=== PATIENT | male | born 1975 | race Caucasian/White ===

== ENCOUNTER → 2022-05-11 11:24 | Outpatient (CLI) | payer OTHER, MEDICAID, SELFPAY ==
[2022-05-11 12:43] LABS: COVID19 -Nasal RAPID Negative (Negative)
== END ==
PROVIDERS: PCP Physician Assistant; Visit Provider Surgery
DX: Z20.822 Contact with and (suspected) exposure to COVID-19 (principal); Z01.812 Encounter for preprocedural laboratory examination
CPT/HCPCS: 87635; C9803

== ENCOUNTER 2022-05-12 08:48 | Day surgery (SDC) | payer OTHER, MEDICAID, SELFPAY ==
[2022-05-12 09:10] VITALS: BP 143/92; PULSE 84; RESP 16; TEMP 36.1; O2SAT 96; BMI 33.9
[2022-05-12] MEDS: LACTATED RINGERS 1,000 ML 200 ML IV (09:49)
--- NOTE | 2022-05-12 10:01 | PM.HP.1 ---
History of Present Illness History of Present Illness Date Patient Seen: 05/12/22 Time Patient Seen: 10:01 Chief complaint: SDC Narrative: The patient presents for colorectal screening. They have never had any previous examination for such. No personal or family history of colon cancer. On further history denies any recent gastrointestinal symptoms. No nausea, vomiting, abdominal pain, loss of appetite, unexplained weight loss, change in bowel habits, diarrhea, constipation, melena, hematochezia, or bright red blood per rectum. Patient History Medical History Fistula Hypercholesteremia Injury of left lower arm Family & Social History Social History: household members spouse Tobacco & Substance use: Smoking Status Former smoker alcohol intake never Substance Use Type does not use Meds Home Medications and Allergies Home Medications Medication Instructions Recorded Confirmed Type atorvastatin 40 mg tablet 40 mg PO DAILY 05/12/22 05/12/22 History Allergies Allergy/AdvReac Type Severity Reaction Status Date / Time Penicillins [PENICILLINS] Allergy Unknown Verified 05/12/22 09:49 Exam Vital Signs (past 8 hours): - 05/12/22 09:10 Temperature 97.0 F L Pulse Rate 84 Respiratory Rate 16 Blood Pressure 143/92 H Pulse Oximetry 96 Oxygen Delivery Method Room Air Oxygen Delivery Method Room Air Narrative Exam Narrative: General adult male alert oriented no acute distress Chest nonlabored respiration Extremities warm well perfused Assessment & Plan Assessment & Plan narrative: The patient requires colorectal screening and colonoscopy is recommended. Technical details were discussed. Risks, benefits, alternatives explained. Risks including but not limited to myocardial infarction, aspiration, bleeding, pain, missed lesion, incomplete examination, need for further radiographic studies, colonic perforation, and need for major abdominal surgery were discussed. All questions were answered to their satisfaction, and they are in agreement with this plan. Time Spent With Patient Critical Care time: I spent a total of [] minutes of critical care time on this patient's care today; this time is exclusive of procedural time.
[2022-05-12] MEDS: MIDAZOLAM 5 MG/5 ML VIAL 6 MG IV (10:14)
[2022-05-12] MEDS: fentaNYL 250 MCG/5 ML INJ 150 MCG IV (10:16)
--- NOTE | 2022-05-12 10:30 | PM.OP.COLON ---
Operative Date/Time/Diagnoses Date of procedure: 05/12/22 Time of procedure: 10:31 Pre-op diagnosis: Screening colonoscopy Post-op diagnosis: same Procedure & Clinicians Study performed: Colonoscopy Same procedure as scheduled: Yes Indications: screening colonoscopy Surgeon: Adiel Gomez Procedure Notes Procedure in detail: Medications: Conscious sedation using 6mg IV midazolam and 150mcg IV of fentanyl The history and physical was performed/updated and the patient is ASA class is *. The procedure was discussed in detail with the patient. Potential risks complications including infection, bleeding, missed diagnosis, perforation, need for surgery, and were explained. Their questions were answered and informed consent was obtained. Patient was brought to the procedure room and placed standard monitoring equipment. The patient's vital signs were monitored continuously throughout the entire procedure. Prior to starting time-out was performed. The patient was placed in the left lateral recumbent position. Procedural sedation was administered. Examination began with a thorough inspection of the perianal area there was no evidence of fissures, fistulae, external hemorrhoids or cutaneous malignancy. The colonoscopy scope was then placed into the anal canal and was advanced to the cecum, which was identified by the ileocecal valve, the appendiceal orifice and the confluence of the taenia. The scope was then slowly withdrawn examining colon thoroughly in all directions, irrigating it of any residual stool. FINDINGS 1. No masses or polyps 2. Sigmoid-moderate diverticulosis The patient tolerated the procedure well. They will be discharged once criteria are met. The prep was of good/excellent quality. The withdrawl time was 10 minutes. The sedation time was 18minutes. Specimen(s): none sent Complications: none Impression: Normal colonoscopy Post-procedure Recommendations: Colonoscopy in 10 years and High fiber diet Disposition: same day surgery
[2022-05-12 10:34] VITALS: BP 134/82; PULSE 88; RESP 19; TEMP 37; O2SAT 95
[2022-05-12 10:39] VITALS: BP 119/69; PULSE 86; RESP 16; O2SAT 96
[2022-05-12 10:44] VITALS: BP 121/77; PULSE 88; RESP 15; O2SAT 99
[2022-05-12 10:48] VITALS: BP 132/86; PULSE 96; RESP 16; O2SAT 95
[2022-05-12 10:50] VITALS: BP 118/88; PULSE 85; RESP 15; O2SAT 96
== END 2022-05-12 11:05 | disposition home or self-care (01) ==
PROVIDERS: PCP Physician Assistant; Referring Provider Surgery; Visit Provider Surgery
PROC: 0DJD8ZZ Inspection of Lower Intestinal Tract, Via Natural or Artificial Opening Endoscopic (ICD-10-PCS; CPT 45378; principal; 2022-05-12 10:00)
DX: Z12.11 Encounter for screening for malignant neoplasm of colon (principal); K57.30 Diverticulosis of large intestine without perforation or abscess without bleeding
CPT/HCPCS: 45378; 99152; J2250; J3010

== ENCOUNTER 2022-09-22 04:19 | Emergency (ER) | payer OTHER, MEDICAID, SELFPAY ==
[2022-09-22 04:22] VITALS: BP 127/91; PULSE 118; RESP 18; TEMP 36.7; O2SAT 98; BMI 33.9
--- NOTE | 2022-09-22 04:55 | DI.CT.S_ITS ---
PROCEDURE: CT ABDOMEN PELVIS W CON INDICATIONS: IV contrast only/left lower quadrant pain TECHNIQUE: After the administration of oral and IV contrast, axial sections were acquired from the lung bases to the pubic symphysis. Coronal and sagittal reformats were performed. For radiation dose reduction, the following was used: automated exposure control, adjustment of mA and/or kV according to patient size. COMPARISON: [facility], CT, ABDOMEN/PELVIS WITH CONTRAST, 08/17/2017, 13:59. FINDINGS: Image quality: Excellent. Lung bases: Patchy opacity at the lingula. This could represent infectious/inflammatory etiology. Bibasilar atelectasis. No pleural effusion. Heart: No significant findings. ABDOMEN: Liver: No focal lesion. Probable hepatic steatosis. Gallbladder: Not significantly distended. Several moderate-sized gallstones. No pericholecystic fluid. Biliary ducts: No dilatation. Pancreas: No peripancreatic fluid collection. Spleen: No splenomegaly. Adrenal Glands: No nodule. Kidneys and Ureters: No hydronephrosis. Nonobstructing right kidney stone measuring 0.6 cm. Stomach and Bowel: Diverticulosis. Moderate inflammatory change at the left lower quadrant surrounding the inferior descending colon, (2/). No extraluminal gas. No abscess. There is colonic wall thickening. Normal appendix. No small bowel obstruction. Peritoneum: No abnormal intraperitoneal fluid. No free air. Ventral Wall: No hernia. Abdominal Nodes: No retroperitoneal or mesenteric adenopathy by size criteria. Vessels: Aorta and inferior vena cava are normal in size. PELVIS: Pelvic Organs: Trace free fluid in the pelvis. Bladder: No stones. Pelvic Nodes: No enlarged lymph nodes. Miscellaneous: Small bilateral inguinal hernias are seen. Bones: No suspicious lesion. IMPRESSION: 1. Acute diverticulosis at the left lower quadrant. No abscess. -Recommend follow-up colonoscopy. 2. Cholelithiasis. Nonobstructing right kidney stone. This report is concordant with the overnight preliminary interpretation. Dictated by: Angel Colorado M.D. on 09/22/2022 at 8:18 Approved by: Angel Colorado M.D. on 09/22/2022 at 8:31
--- NOTE | 2022-09-22 04:57 | ED_ITS ---
HPI - Abdominal Pain General Chief Complaint: Abdominal Pain Stated Complaint: lower left abd pain Time Seen by Provider: 09/22/22 04:48 Source: patient Mode of arrival: Ambulatory History of Present Illness HPI narrative: Patient complains of reproducible left lower quadrant pain for the past 24 hours. Hurts more with movement or walking. No nausea vomiting diarrhea no urinary complaints. Does not radiate to the back. Patient states had colonoscopy this year. Does not know the results of it. No prior history of diverticulitis or kidney stone. Patient had colonoscopy here with Dr. Gomez [address] [address] Colonoscopy Note Patient: Hector Caballero MR#: [id number] : 1975 Acct:[id number] Age/Sex: 46 / M ? Date of Service: 05/12/22 Provider:?Adiel Gomez MD Operative Date/Time/Diagnoses Date of procedure: 05/12/22 Time of procedure: 10:31 Pre-op diagnosis: Screening colonoscopy Post-op diagnosis: same Procedure & Clinicians Study performed: Colonoscopy Same procedure as scheduled: Yes Indications: screening colonoscopy Surgeon: Adiel Gomez Procedure Notes Procedure in detail: Medications:? Conscious sedation using? 6mg IV midazolam and? 150mcg IV of fentanyl The history and physical was performed/updated and the patient is ASA class is *.? The procedure was discussed in detail with the patient.? Potential risks complications including infection, bleeding, missed diagnosis, perforation, need for surgery, and were explained.? Their questions were answered and informed consent was obtained.? Patient was brought to the procedure room and placed standard monitoring equipment.? The patient's vital signs were monitored continuously throughout the entire procedure.? Prior to starting time-out was performed.? The patient was placed in the left lateral recumbent position.? Procedural sedation was administered.? Examination began with a thorough inspection of the perianal area there was no evidence of fissures, fistulae, external hemorrhoids or cutaneous malignancy.? The colonoscopy scope was then placed into the anal canal and was advanced to the cecum, which was identified by the ileocecal valve, the appendiceal orifice and the confluence of the taenia. The scope was then slowly withdrawn examining colon thoroughly in all directions, irrigating it of any residual stool.? FINDINGS 1. No masses or polyps 2. Sigmoid-moderate diverticulosis The patient tolerated the procedure well. They will be discharged once criteria are met.? The prep was of good/excellent quality.? The withdrawl time was? 10 minutes.? The sedation time was? 18minutes. Specimen(s): none sent Complications: none Impression: Normal colonoscopy Post-procedure Recommendations: Colonoscopy in 10 years and High fiber diet Disposition: same day surgery Related Data Home Medications Medication Instructions Recorded Confirmed atorvastatin 40 mg tablet 40 mg PO DAILY 05/12/22 05/12/22 Previous Rx's Medication Instructions Recorded ciprofloxacin HCl 500 mg tablet 500 mg PO BID #14 tabs 09/22/22 (Cipro) hydrocodone 5 mg-acetaminophen 325 1 tab PO Q6H PRN pain #16 tabs 09/22/22 mg tablet metoclopramide HCl 10 mg tablet 10 mg PO Q6H PRN nausea and 09/22/22 (Reglan) vomiting #14 tabs metronidazole 500 mg tablet 500 mg PO TID #21 tabs 09/22/22 Allergies Allergy/AdvReac Type Severity Reaction Status Date / Time Penicillins [PENICILLINS] Allergy Unknown Verified 05/12/22 09:49 Review of Systems Review of Systems Narrative: GENERAL: negative chills, fatigue, malaise, fever, sweats. HEENT: negative sinus pain, ear pain, sore throat RESPIRATORY: negative dyspnea, cough CARDIOVASCULAR: negative chest pain, palpitations GASTROINTESTINAL: negative nausea, vomiting, positive abdominal pain : negative dysuria, frequency, hematuria MUSCULOSKELETAL: negative muscle or bony pain SKIN: negative rash, skin lesions NEUROLOGIC: negative weakness, numbness ROS Unobtainable: All systems reviewed & are unremarkable except as noted in HPI and below Patient History Medical History Fistula Hypercholesteremia Injury of left lower arm Social History household members: spouse Smoking Status: Former smoker alcohol intake: never Smoking Status: Former smoker alcohol intake frequency: a few times a month Substance Use Type: does not use Exam Narrative Exam Narrative: GENERAL: in no distress, not toxic not dyspneic HEAD: Normocephalic. EYES: Pupils equal round No scleral icterus. ENT: Mucous membranes moist. NECK: Trachea midline. CARDIOVASCULAR: Regular rate and rhythm without murmurs RESPIRATORY: Clear to auscultation. Breath sounds equal bilaterally. No wheezes, rales, or rhonchi. GASTROINTESTINAL: Abdomen soft, reproducible left lower quadrant tenderness, no peritoneal signs, bowel sounds are present. No CVA tenderness EXTREMITIES: No gross deformities. BACK: No flank tenderness. NEURO: AOx4. SKIN: Warm and dry PSYCH: Not anxious, is cooperative Initial Vital Signs Initial Vital Signs: Vital Signs Temperature 98.1 F 09/22/22 04:22 Pulse Rate 118 H 09/22/22 04:22 Respiratory Rate 18 09/22/22 04:22 Blood Pressure 127/91 H 09/22/22 04:22 Pulse Oximetry 98 09/22/22 04:22 Oxygen Delivery Method 09/22/22 04:22 Course Course Course Narrative: No new issues during course of stay. Orders Ordered: Discontinued Medications Ciprofloxacin (Ciprofloxacin 250 Mg Tablet) 500 mg PO NOW ONE Stop: 09/22/22 06:45 Last Admin: 09/22/22 07:07 Dose: 500 mg Documented By: TIN Sodium Chloride (Normal Saline 0.9%) 1,000 mls @ 1,000 mls/hr IV BOLUS ONE Stop: 09/22/22 05:54 Last Infusion: 09/22/22 07:13 Dose: 0 mls/hr Documented By: Admin: 09/22/22 05:10 Dose: 1,000 mls/hr Documented By: YENNY Metronidazole (Metronidazole 500 Mg Tablet) 500 mg PO NOW ONE Stop: 09/22/22 06:45 Last Admin: 09/22/22 07:07 Dose: 500 mg Documented By: TIN Morphine Sulfate (Morphine 4 Mg/Ml Inj) 4 mg IV NOW ONE Stop: 09/22/22 04:56 Last Admin: 09/22/22 05:16 Dose: 4 mg Documented By: YENNY Ondansetron HCl (Ondansetron 4 Mg/2 Ml Inj) 4 mg IV NOW ONE Stop: 09/22/22 04:56 Last Admin: 09/22/22 05:10 Dose: 4 mg Documented By: YENNY Reevaluation(s) Reevaluation #1: Patient feeling much better after pain medication. Reviewed results with patient. 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 Agrees or outpatient treatment for diverticulitis and follow up with provided general surgery on-call for outpatient colonoscopy. Return precautions reviewed with him. Time: 06:46 Vital Signs Vital signs: Vital Signs - 8 hr 09/22/22 04:22 Temperature 98.1 F Pulse Rate 118 H Respiratory Rate 18 Blood Pressure 127/91 H Pulse Oximetry 98 Oxygen Delivery Method Room Air MDM - Abdominal Pain Differential Diagnosis Differential diagnosis: Likely abdominal pain, acute appendicitis, diverticulitis and small bowel obstruction Lab Data Result diagrams: 09/22/22 04:38 09/22/22 04:38 Labs: Lab Results 09/22/22 09/22/22 09/22/22 Range/Units 04:38 04:38 04:38 WBC 9.7 (4.5-11.0) X10^3/uL RBC 5.14 (4.5-5.9) X10^6/uL Hgb 15.7 (13.5-17.5) g/dL Hct 47.0 (41-53) % MCV 91.3 (80-100) fL MCH 30.6 (26-34) PG MCHC 33.5 (30-36) % RDW 13.5 (11.6-14.8) % Plt Count 259 (150-400) X10^3/uL Neut % (Auto) 67.3 (50-75) % Lymph % (Auto) 19.3 L (25-40) % [place] % (Auto) 11.5 (3-14) % Eos % (Auto) 1.3 L (2-4) % Baso % (Auto) 0.6 (0-2) % Neut # (Auto) 6500 (5777-2691) /uL Lymph # (Auto) 1900 (4445-3178) /uL [place] # (Auto) 1100 H (0-900) /uL Eos # (Auto) 100 (0-450) /uL Baso # (Auto) 100 (0-100) /uL Sodium 138 (137-145) mmol/L Potassium 4.0 (3.4-5.1) mmol/L Chloride 102 (98-107) mmol/L Carbon Dioxide 24 (22-32) mmol/L BUN 14 (9-20) mg/dL Creatinine 0.91 (0.66-1.25) mg/dL Estimated GFR > 60 (>60) mL/min BUN/Creatinine Ratio 15.4 (6-22) Glucose 128 H (70-100) mg/dL Calcium 9.1 (8.4-10.2) mg/dL Total Bilirubin 1.3 (0.2-1.3) mg/dL AST 31 (17-59) IU/L ALT 49 (<50) IU/L Alkaline Phosphatase 65 (38-126) U/L Ammonia < 9 L (9-30) umol/L Total Protein 8.1 (6.3-8.2) g/dL Albumin 4.4 (3.5-5.0) g/dL Globulin 3.7 (1.7-4.1) g/dL Albumin/Globulin Ratio 1.2 (1.0-2.8) Lipase 65 (23-300) U/L Imaging Data CT scan - abdomen/pelvis: Radiologist's Impression: Read by overnight Radiology group, real Radiology. Findings compatible with acute diverticulitis involving the junction of the descending colon and sigmoid colon. No drainable fluid collection or pneumoperitoneum. MDM Narrative Medical decision making narrative: Appropriate for discharge home. Pain is controlled. White cell countnormal not toxic. Return precautions reviewed with patient. General surgery referral given for outpatient colonoscopy. Ham and laboratory studies and imaging otherwise reassuring Discharge Plan Departure Patient Disposition: Home Clinical Impression: Diverticulitis Instructions: DI for Diverticulitis Activity Restrictions/Additional Instructions: No driving or operating machinery today or when taking prescribed pain medication. Prescription for pain medication as well as antibiotics have been p rovided for you. Be sure to complete the course of antibiotics. Call provided general surgery office today to schedule appointment for follow-up colonoscopy. Return if worse if any questions or concerns. Prescriptions: New ciprofloxacin HCl [Cipro] 500 mg tablet 500 mg PO BID Qty: 14 0RF metronidazole 500 mg tablet 500 mg PO TID Qty: 21 0RF hydrocodone-acetaminophen 5-325 mg tablet 1 tab PO Q6H PRN (Reason: pain) Qty: 16 0RF metoclopramide HCl [Reglan] 10 mg tablet 10 mg PO Q6H PRN (Reason: nausea and vomiting) Qty: 14 0RF No Action atorvastatin 40 mg tablet 40 mg PO DAILY Label Comments: TAKE ONE TABLET BY MOUTH ONCE NIGHTLY Referrals: Bartolome Muhammad MD [Physician] - Ester Staples PA-C [Primary Care Provider] - Visit Report Forms: Patient Portal/API
[2022-09-22 05:08] LABS: Add Manual Diff / Slide Review NO; Basophils Absolute Auto 100 /uL (0-100); Basophils Percent Auto 0.6 % (0-2); Eosinophils Absolute Auto 100 /uL (0-450); Eosinophils Percent Auto 1.3 % (2-4); Hemoglobin 15.7 g/dL (13.5-17.5); Lymphocytes Absolute Auto 1900 /uL (1100-4500); Lymphocytes Percent Auto 19.3 % (25-40); Mean Corpuscular HGB Conc 33.5 % (30-36); Mean Corpuscular Hemoglobin 30.6 PG (26-34); Mean Corpuscular Volume 91.3 fL (80-100); Monocytes Absolute Auto 1100 /uL (0-900); Monocytes Percent Auto 11.5 % (3-14); Neutrophils Absolute Auto 6500 /uL (1500-7000); Neutrophils Percent Auto 67.3 % (50-75); Platelet Count 259 X10^3/uL (150-400); Red Blood Cell Count 5.14 X10^6/uL (4.5-5.9); Red Cell Distribution Width 13.5 % (11.6-14.8); White Blood Cell Count 9.7 X10^3/uL (4.5-11.0)
[2022-09-22] MEDS: ONDANSETRON 4 MG/2 ML INJ IV (05:10)
[2022-09-22] MEDS: SODIUM CHLORIDE 0.9% 1,000 ML 1000 ML IV (05:10)
[2022-09-22] MEDS: MORPHINE 4 MG/ML INJ IV (05:16)
[2022-09-22 05:24] LABS: Alanine Aminotransferase 49 IU/L (<50); Albumin 4.4 g/dL (3.5-5.0); Albumin Globulin Ratio 1.2 (1.0-2.8); Alkaline Phosphatase 65 U/L (38-126); Aspartate Aminotransferase 31 IU/L (17-59); BUN Creatinine Ratio 15.4 (6-22); Bilirubin Total 1.3 mg/dL (0.2-1.3); Blood Urea Nitrogen 14 mg/dL (9-20); Calcium 9.1 mg/dL (8.4-10.2); Carbon Dioxide 24 mmol/L (22-32); Chloride 102 mmol/L (98-107); Estimated Glomerular Filt Rate > 60 mL/min (>60); Globulin 3.7 g/dL (1.7-4.1); Glucose 128 mg/dL (70-100); HEMOLYSIS < 15 (0-50); Lipase 65 U/L (23-300); Sodium 138 mmol/L (137-145); Total Protein 8.1 g/dL (6.3-8.2)
[2022-09-22 05:25] LABS: Ammonia (NH3) < 9 umol/L (9-30)
[2022-09-22] MEDS: metroNIDAZOLE 500 MG TABLET PO (07:07)
[2022-09-22] MEDS: CIPROFLOXACIN 250 MG TABLET 500 MG PO (07:07)
== END 2022-09-22 07:16 | disposition home or self-care (01) ==
PROVIDERS: Emergency Provider Emergency Medicine; PCP Physician Assistant
DX: K57.32 Diverticulitis of large intestine without perforation or abscess without bleeding (principal)
CPT/HCPCS: 36415; 74177; 80053; 82140; 83690; 85025; 96374; 96375; 99284; J2270; J2405; Q9967

== ENCOUNTER 2022-09-24 18:05 | Emergency (ER) | payer OTHER, MEDICAID, SELFPAY ==
[2022-09-24 18:15] VITALS: BP 136/84; PULSE 85; RESP 18; TEMP 37; O2SAT 98; BMI 33.9
--- NOTE | 2022-09-24 18:18 | DI.RAD.S_ITS ---
PROCEDURE: XR ELBOW RT MIN 3V INDICATIONS: felt pop while twisting a valve, swelling, cant bend TECHNIQUE: 3 views of the elbow were acquired. COMPARISON: None. FINDINGS: Bones: No fractures or dislocations. No suspicious bony lesions. Soft tissues: No elbow joint effusion. No suspicious soft tissue calcifications. IMPRESSION: No acute osseous abnormalities. If clinical symptoms persist or clinical suspicion for pathology is high, a repeat examination in 7-10 days, or advanced imaging such as CT or MRI is suggested for further evaluation. Dictated by: Alfredo Humphreys M.D. on 09/24/2022 at 19:14 Approved by: Alfredo Humphreys M.D. on 09/24/2022 at 19:15
--- NOTE | 2022-09-24 23:20 | PC.NURSE ---
pt states he was turning a bolt and turned his arm too far and heard a pop now c/o pain when outstretching his arm, pain is on the inner side of his elbow, no obvious injury or deformity noted
--- NOTE | 2022-09-24 23:38 | ED_ITS ---
HPI - Extremity Injury (Upper) General Chief Complaint: Extremity Injury, Upper Stated Complaint: RT ELBOW INJURY Time Seen by Provider: 09/24/22 23:37 Source: patient Mode of arrival: Ambulatory Limitations: no limitations History of Present Illness HPI narrative: This is a 46 year old male with dyslipidemia, currently on antibiotics for diverticulitis and is on ciprofloxacin and metronidazole with his arm fully extended and externally rotating and supinating his wrist, patient felt pain at the inner elbow just distal to the elbow itself and feels like there is in the soft tissue. He did not appreciate a pop. He states it is quite painful to flex but even more so to fully extend, he does not appreciate obvious deformities or changes to the muscles of his arm. Patient has not had similar symptoms in the past. He states he has some mild sensation change in his fingers, he states he has full range of motion at the wrist and hand and fingers without pain and his left shoulder feels spasm-y. Patient denies any prior surgeries or injuries to this area. 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 Related Data Home Medications Medication Instructions Recorded Confirmed atorvastatin 40 mg tablet 40 mg PO DAILY 05/12/22 05/12/22 Previous Rx's Medication Instructions Recorded ciprofloxacin HCl 500 mg tablet 500 mg PO BID #14 tabs 09/22/22 (Cipro) hydrocodone 5 mg-acetaminophen 325 1 tab PO Q6H PRN pain #16 tabs 09/22/22 mg tablet metoclopramide HCl 10 mg tablet 10 mg PO Q6H PRN nausea and 09/22/22 (Reglan) vomiting #14 tabs metronidazole 500 mg tablet 500 mg PO TID #21 tabs 09/22/22 Allergies Allergy/AdvReac Type Severity Reaction Status Date / Time Penicillins [PENICILLINS] Allergy Unknown Verified 05/12/22 09:49 Review of Systems Review of Systems ROS Unobtainable: All systems reviewed & are unremarkable except as noted in HPI and below Patient History Medical History Fistula Hypercholesteremia Injury of left lower arm Social History household members: spouse Smoking Status: Former smoker alcohol intake: never Smoking Status: Former smoker alcohol intake frequency: a few times a month Substance Use Type: does not use Exam Narrative Exam Narrative: GENERAL: Alert and oriented x three, male in mild distress. HEENT: Head normocephalic, atraumatic, EOMI, pupils reactive, face symmetric, moist mucous membranes NECK: Supple, full range of motion EXTREMITIES: Normal range of motion although painful to fully extend, patient does not have any bony tenderness on examination of the shoulder, elbow, wrist or hand. Has discomfort over the proximal forearm about 1-2 cm from the inner elbow in the soft tissue, there are no lumps or obvious gross abnormalities or deformities, patient does not have any tenderness over the biceps tendon does not have any deformities of the biceps tendon itself. No clubbing or edema. Neurovascularly intact. Patient has full extension flexion of all 5 fingers. Sensation to light touch throughout. NEUROLOGICAL: Cranial nerves II through XII grossly intact. Moving all extremities SKIN: Warm, dry, no petechiae, no rashes or lesions. Initial Vital Signs Initial Vital Signs: Vital Signs Temperature 98.6 F 09/24/22 18:15 Pulse Rate 85 09/24/22 18:15 Respiratory Rate 18 09/24/22 18:15 Blood Pressure 136/84 09/24/22 18:15 Pulse Oximetry 98 09/24/22 18:15 Oxygen Delivery Method 09/24/22 18:15 Course Orders Ordered: Discontinued Medications Ibuprofen (Ibuprofen 400 Mg Tablet) 800 mg PO NOW ONE Stop: 09/25/22 00:05 Last Admin: 09/25/22 00:18 Dose: 800 mg Documented By: DARIN Vital Signs Vital signs: Vital Signs - 8 hr 09/24/22 18:15 Temperature 98.6 F Pulse Rate 85 Respiratory Rate 18 Blood Pressure 136/84 Pulse Oximetry 98 Oxygen Delivery Method Room Air MDM - Extremity Injury (Upper) Imaging Data Extremity x-ray #1: Radiologist's Impression: [address] [address] XRay Report Signed Patient: Hector Caballero MR#: [id number] : 1975 Acct:[id number] Age/Sex: 46 / M Date of Service: 09/24/22 Loc: ED Accession Number: [id number] ?? Procedure: XR elbow RT min 3V Ordering Provider: Betzy Morejon D.O. PROCEDURE:? XR ELBOW RT MIN 3V ? INDICATIONS:? felt pop while twisting a valve, swelling, cant bend ? TECHNIQUE:? 3 views of the elbow were acquired.? ? COMPARISON:? None. ? FINDINGS:? ? Bones:? No fractures or dislocations.? No suspicious bony lesions.? ? Soft tissues:? No elbow joint effusion.? No suspicious soft tissue calcifications.? ? ? IMPRESSION:? No acute osseous abnormalities.? If clinical symptoms persist or clinical suspicion for pathology is high, a repeat examination in 7-10 days, or advanced imaging such as CT or MRI is suggested for further evaluation. ? ? Dictated by: Alfredo Humphreys M.D. on 09/24/2022 at 19:14 ? ? Approved by: Alfredo Humphreys M.D. on 09/24/2022 at 19:15?? MDM Narrative Medical decision making narrative: This is a 46-year-old male comes emergency department with complaint of injury to his right elbow suspect he has a tendon or ligamentous injury possibly muscle tear. Patient was placed in sling, duty restriction, follow-up with orthopedic surgery shortly. Attempted to reach out to Dr. Bello. Patient is to call Wednesday. Discharge Plan Departure Patient Disposition: Home Clinical Impression: Injury of tendon at forearm level Activity Restrictions/Additional Instructions: Please follow-up with orthopedic surgery, please call for an appointment tomorrow. You may perform gentle [id number] but no heavy lifting or stressing the tendon or joint at your forearm. You may take ibuprofen up to 600 mg every 6 hours as needed for pain and/or Tylenol up to a 1000 mg every 6 hours. Elevated affected body part to decrease swelling. OK to use ice pack on the affected body part. Use for 15-20 minutes each time, for 5-6x per day. If you develop worsening pain, numbness, tingling, discoloration of the affected body part, adjust the sling either see your doctor for an urgent re-assessment, or return to the Emergency Department. Return to the Emergency Department for any new or worsening symptoms. Prescriptions: No Action atorvastatin 40 mg tablet 40 mg PO DAILY Label Comments: TAKE ONE TABLET BY MOUTH ONCE NIGHTLY ciprofloxacin HCl [Cipro] 500 mg tablet 500 mg PO BID Qty: 14 0RF metronidazole 500 mg tablet 500 mg PO TID Qty: 21 0RF hydrocodone-acetaminophen 5-325 mg tablet 1 tab PO Q6H PRN (Reason: pain) Qty: 16 0RF metoclopramide HCl [Reglan] 10 mg tablet 10 mg PO Q6H PRN (Reason: nausea and vomiting) Qty: 14 0RF Referrals: Kae Hernandez MD [Physician] - Ester Staples PA-C [Primary Care Provider] - Visit Report Forms: Patient Portal/API
[2022-09-25] MEDS: IBUPROFEN 400 MG TABLET 800 MG PO (00:18)
[2022-09-25 00:28] VITALS: BP 149/96; PULSE 89; RESP 16; O2SAT 96
== END 2022-09-25 00:34 | disposition home or self-care (01) ==
PROVIDERS: Emergency Provider Emergency Medicine; PCP Physician Assistant
DX: S56.8 Injury of other muscles, fascia and tendons at forearm level (principal); X58.XXXA Exposure to other specified factors, initial encounter
CPT/HCPCS: 73080; 99283

== ENCOUNTER → 2022-10-01 10:31 | Outpatient (CLI) | payer OTHER, MEDICAID, SELFPAY ==
--- NOTE | 2022-10-01 10:32 | DI.MRI.S_ITS ---
PROCEDURE: MR ELBOW RT WO CON INDICATIONS: BICEPS RUPTURE. Right Elbow pain TECHNIQUE: Noncontrast coronal proton density fast spin echo and T2 fast spin echo with fat saturation, axial and sagittal T1 spin echo and T2 fast spin echo with fat saturation through the elbow. COMPARISON: None. FINDINGS: Image quality: Excellent. Lateral structures: The lateral ulnar collateral ligament and radial collateral ligament both appear intact. The overlying common extensor tendon also appears normal. Medial structures: The ulnar collateral ligament appears intact. The overlying common flexor tendon appears normal. The ulnar nerve appears normal in size and signal within the cubital tunnel. Anterior structures: There is suggestion of full-thickness rupture involving distal biceps tendon at its insertion on proximal radius with up to 1.5 cm proximal retraction of torn tendon fibers with moderate amount of surrounding soft tissue edema and fluid. Distal brachialis tendon is intact. The median and radial neurovascular bundles appear normal; no focal muscle atrophy to suggest nerve impingement. Posterior structures: The conjoint triceps tendon from the long and lateral heads appears intact. The medial head of the triceps tendon also appears normal, with direct muscle insertion onto the olecranon. No olecranon bursal fluid. Bone and cartilage: No bone marrow contusions or fractures. No osteochondral injuries. IMPRESSION: 1. Full-thickness rupture involving distal biceps tendon at its insertion on proximal radius with up to 1.5 cm proximal retraction of torn tendon fibers and moderate amount of surrounding soft tissue edema and fluid. Distal brachialis tendon is intact. 2. Medial and lateral elbow tendons and ligaments are intact. 3. No marrow edema. No fracture or dislocation. No suspicious bony lesions. Dictated by: Dain Lamb M.D. on 10/01/2022 at 12:17 Approved by: Dain Lamb M.D. on 10/01/2022 at 12:20
== END ==
PROVIDERS: PCP Physician Assistant; Referring Provider Orthopaedic Surgery Foot and Ankle Surgery; Visit Provider Orthopaedic Surgery Foot and Ankle Surgery
DX: S46.211A Strain of muscle, fascia and tendon of other parts of biceps, right arm, initial encounter (principal); X58.XXXA Exposure to other specified factors, initial encounter
CPT/HCPCS: 73221

== ENCOUNTER → 2022-10-21 17:37 | Outpatient (CLI) | payer OTHER, MEDICAID, SELFPAY ==
--- NOTE | 2022-10-21 | DI.MRI.S_ITS ---
PROCEDURE: MR ELBOW RT WO CON INDICATIONS: Post op bicep rupture TECHNIQUE: Noncontrast coronal proton density fast spin echo and T2 fast spin echo with fat saturation, axial and sagittal T1 spin echo and T2 fast spin echo with fat saturation through the elbow. COMPARISON: [facility], MR, MR ELBOW RT WO CON, 10/01/2022, 10:50. FINDINGS: Image quality: Excellent. Lateral structures: The lateral ulnar collateral ligament and radial collateral ligament both appear intact. The overlying common extensor tendon also appears normal. Medial structures: The ulnar collateral ligament appears intact. The overlying common flexor tendon appears normal. The ulnar nerve appears normal in size and signal within the cubital tunnel. Anterior structures: The brachialis tendon is intact. Status post surgical repair of the biceps tendon. There is high-grade tearing of the distal biceps tendon at the radial insertion site. Moderate T2 signal elevation surrounds the distal biceps tendon. No bicipitoradial bursal fluid. The median and radial neurovascular bundles appear normal; no focal muscle atrophy to suggest nerve impingement. Posterior structures: The conjoint triceps tendon from the long and lateral heads appears intact. The medial head of the triceps tendon also appears normal, with direct muscle insertion onto the olecranon. No olecranon bursal fluid. Bone and cartilage: No bone marrow contusions or fractures. No osteochondral injuries. IMPRESSION: 1. Postsurgical sequelae. 2. High-grade tearing of the surgically repaired biceps tendon at the radial insertion site. Dictated by: Amber Rollins M.D. on 10/22/2022 at 11:36 Approved by: Amber Rollins M.D. on 10/22/2022 at 11:40
== END ==
PROVIDERS: PCP Physician Assistant; Referring Provider Orthopaedic Surgery; Visit Provider Orthopaedic Surgery
DX: S46.211A Strain of muscle, fascia and tendon of other parts of biceps, right arm, initial encounter (principal); X58.XXXA Exposure to other specified factors, initial encounter; Z98.890 Other specified postprocedural states
CPT/HCPCS: 73221

== ENCOUNTER 2022-12-31 04:46 | Emergency (ER) | payer OTHER, MEDICAID, SELFPAY ==
[2022-12-31 05:04] VITALS: BP 132/73; PULSE 93; RESP 18; TEMP 36.3; O2SAT 97; BMI 35.5
--- NOTE | 2022-12-31 05:28 | ED.ABDPAIN ---
HPI - Abdominal Pain General Chief Complaint: Abdominal Pain Stated Complaint: abd pain Time Seen by Provider: 12/31/22 04:56 Source: patient Mode of arrival: Ambulatory History of Present Illness HPI narrative: 47-year-old male former smoker with history diverticulitis presents with a chief complaint of about a day's worth of left lower quadrant pain that reminds him of prior episodes of diverticulitis. He denies any fever or chills. He has no nausea or vomiting. He denies any radiation of the pain. He states it is worse when he moves and improves with rest. Denies any change in bowel habits and states he had a normal bowel movement lot long ago without any issue. He has had diverticulitis multiple times in the past, most recently he was put on Cipro and Flagyl and developed a biceps tendon rupture as a consequence. Related Data Home Medications Medication Instructions Recorded Confirmed atorvastatin 40 mg tablet 40 mg PO DAILY 05/12/22 05/12/22 Previous Rx's Medication Instructions Recorded ciprofloxacin HCl 500 mg tablet 500 mg PO BID #14 tabs 09/22/22 (Cipro) hydrocodone 5 mg-acetaminophen 325 1 tab PO Q6H PRN pain #16 tabs 09/22/22 mg tablet metoclopramide HCl 10 mg tablet 10 mg PO Q6H PRN nausea and 09/22/22 (Reglan) vomiting #14 tabs metronidazole 500 mg tablet 500 mg PO TID #21 tabs 09/22/22 amoxicillin 875 mg-potassium 1 tab PO Q12H #20 tabs 12/31/22 clavulanate 125 mg tablet hydrocodone 5 mg-acetaminophen 325 1 tab PO Q4-6H PRN pain #10 tabs 12/31/22 mg tablet ondansetron 4 mg disintegrating 4 mg PO TID-QID PRN nausea and 12/31/22 tablet vomiting #10 tabs Allergies Allergy/AdvReac Type Severity Reaction Status Date / Time Penicillins [PENICILLINS] Allergy Unknown Verified 05/12/22 09:49 Review of Systems Review of Systems Narrative: GENERAL: Denies chills, fatigue, malaise, fever, sweats. HEENT: Denies sinus pain, ear pain, sore throat, difficulty swallowing, dizziness. RESPIRATORY: Denies dyspnea, cough, wheezing, hemoptysis, sputum. CARDIOVASCULAR: Denies chest pain, palpitations, orthopnea, edema, GASTROINTESTINAL: See HPI : Denies dysuria, frequency, incontinence, hematuria, urinary retention. MUSCULOSKELETAL: denies weakness, joint pain, or bony pain SKIN: Denies rash, skin lesions, or other NEUROLOGIC: Denies weakness, headache, numbness, change in speech, confusion, seizures, incoordination. PSYCHIATRIC: No concerning psychosocial issues. 12 point review of systems is negative except for those stated above Patient History Medical History Fistula Hypercholesteremia Injury of left lower arm Social History household members: spouse Smoking Status: Former smoker alcohol intake: never Smoking Status: Former smoker alcohol intake frequency: a few times a month Substance Use Type: does not use Exam Narrative Exam Narrative: GENERAL: [47] year old patient appears stated age. Well-developed patient, in mild distress. HEAD: Atraumatic. Normocephalic. EYES: Pupils equal round and reactive. Extraocular motions intact. No scleral icterus. No injection or drainage. ENT: Nose without bleeding, purulent drainage. Throat without erythema, tonsillar hypertrophy or exudate. Airway patent. NECK: Trachea midline. Non tender CARDIOVASCULAR: Regular rate and rhythm without murmurs, gallops, or rubs. RESPIRATORY: Clear to auscultation. Breath sounds equal bilaterally. No wheezes, rales, or rhonchi. GASTROINTESTINAL: Abdomen soft, tenderness in the left lower quadrant, no rebound, nondistended. EXTREMITIES: No edema or joint tenderness. BACK: Nontender without deformity or crepitance. No flank tenderness. NEURO: AOx3. SKIN: No rash or erythema of visible areas Initial Vital Signs Initial Vital Signs: Vital Signs Temperature 97.3 F L 12/31/22 05:04 Pulse Rate 93 H 12/31/22 05:04 Respiratory Rate 18 12/31/22 05:04 Blood Pressure 132/73 12/31/22 05:04 Pulse Oximetry 97 12/31/22 05:04 Oxygen Delivery Method Room Air 12/31/22 05:04 Course Orders Ordered: Discontinued Medications Hydrocodone Bitart/Acetaminophen (Hydrocodone/Acet 5/325 Prepack) 1 bottle MISC SEEINSTR ONE Stop: 12/31/22 05:35 Last Admin: 12/31/22 05:44 Dose: 1 bottle Amoxicillin/Clavulanate Potassium (Amoxicillin/Clav 875/125 Mg) 1 tab PO NOW ONE Stop: 12/31/22 05:35 Last Admin: 12/31/22 05:44 Dose: 1 tab Vital Signs Vital signs: Vital Signs - 8 hr 12/31/22 05:04 Temperature 97.3 F L Pulse Rate 93 H Respiratory Rate 18 Blood Pressure 132/73 Pulse Oximetry 97 Oxygen Delivery Method Room Air MDM - Abdominal Pain Lab Data Point of care testing: Urine Dip Bedside Urine Glucose Negative Bedside Urine Bilirubin - Negative Bedside Urine Ketone - Negative Urine Specific [place] 1.025 Bedside Urine Occult Blood - Negative Bedside Urine pH 6.0 Bedside Urine Protein - Negative Bedside Urine Urobilinogen - Negative Bedside Urine Nitrite - Negative Bedside Urine Leukocytes - Negative Esterase MDM Narrative Medical decision making narrative: [47] year old patient presents with left lower quadrant pain Multiple etiologies for patient's symptoms considered including, but not limited to: [Diverticulitis, urinary infection, kidney stone versus other] Prior Charts reviewed in our EMR Primary Historian: patient Labs reviewed and interpreted by myself: Urine notes Patient presents very early in his presentation of left lower quadrant pain and concern for diverticulitis. He shows no signs of sepsis and has no fever, chills nor nausea or vomiting. His abdomen is soft with localized tenderness and no peritoneal signs. We discussed at length the utility in a large complex workup with labs and even advanced imaging and sure the opinion that it is unlikely to change his disposition given his early presentation and mild symptoms. We discussed the pros and cons of this approach including the possibility of a missed alternate diagnosis but agree that seems unlikely at this point in time. Furthermore we discussed possible outpatient therapies and given his recent use of quinolones with tendon rupture we would prefer to not take this approach. He does report a penicillin allergy from when he was a baby and states he had a mild rash. We discussed the risks and benefits of this approach and agree that Augmentin as the best approach at this point in time. Findings and discharge diagnosis discussed with patient/family followed by verbalization of understanding Return precautions discussed with patient/family whom verbalize understanding of diagnosis and plan Discharge Plan Departure Patient Disposition: Home Clinical Impression: Diverticulitis Instructions: Diverticulitis Activity Restrictions/Additional Instructions: *You have been diagnosed with [abdominal pain likely due to diverticulitis] * As we discussed your history and physical exam as well as labs and imaging are very reassuring. There is no evidence of any severe diagnoses that would require a specific or immediate intervention. *What to do: *Please continue to take your regular medications as directed. [x ] New medication prescriptions sent to your pharmacy: [facility] *Please follow up with your primary care provider in 2-3 days, call for an appointment. Let them know you were seen in the Emergency Department and that we ask that you be seen in follow up. We will electronically transmit a record of today's note if your PCP is in our system *Please consider a clear liquid diet for the next 24-48 hours and then slowly advance to regular as tolerated. Also, try to avoid alcohol, nicotine, caffeine, spicy, acidic or fatty foods as this may worsen your symptoms *If you do not have a primary care provider please contact the [facility] Resource line at [phone]. They will ask some questions about your medical history and help get you set up with a doctor in the community. *Return to Emergency Department if you should have any new, worsening or concerning symptoms, such as [fever greater than 101 F, shaking chills, worsening pain, persistent vomiting or other bothersome symptoms] Prescriptions: New hydrocodone-acetaminophen 5-325 mg tablet 1 tab PO Q4-6H PRN (Reason: pain) Qty: 10 0RF ondansetron 4 mg tablet,disintegrating 4 mg PO TID-QID PRN (Reason: nausea and vomiting) Qty: 10 0RF amoxicillin-pot clavulanate 875-125 mg tablet 1 tab PO Q12H Qty: 20 0RF No Action atorvastatin 40 mg tablet 40 mg PO DAILY Patient Comments: TAKE ONE TABLET BY MOUTH ONCE NIGHTLY ciprofloxacin HCl [Cipro] 500 mg tablet 500 mg PO BID Qty: 14 0RF metronidazole 500 mg tablet 500 mg PO TID Qty: 21 0RF hydrocodone-acetaminophen 5-325 mg tablet 1 tab PO Q6H PRN (Reason: pain) Qty: 16 0RF metoclopramide HCl [Reglan] 10 mg tablet 10 mg PO Q6H PRN (Reason: nausea and vomiting) Qty: 14 0RF Referrals: Ester Staples PA-C [Primary Care Provider] - Stand Alone Forms: Patient Portal/API
[2022-12-31] MEDS: HYDROCODONE/ACET 5/325 PREPACK 1 BOTTLE MISC (05:44)
[2022-12-31] MEDS: AMOXICILLIN/CLAV 875/125 MG 1 TAB PO (05:44)
[2022-12-31 05:51] VITALS: BP 130/73; PULSE 90; RESP 16; O2SAT 98
== END 2022-12-31 05:57 | disposition home or self-care (01) ==
PROVIDERS: Emergency Provider Emergency Medicine; PCP Physician Assistant
DX: K57.92 Diverticulitis of intestine, part unspecified, without perforation or abscess without bleeding (principal)
CPT/HCPCS: 81003; 99283

== ENCOUNTER 2024-10-27 11:59 | Emergency (ER) | payer OTHER, SELFPAY ==
[2024-10-27 12:04] VITALS: BP 133/100; PULSE 85; RESP 16; TEMP 36.3; O2SAT 98; BMI 30.5
--- NOTE | 2024-10-27 12:26 | ED_ITS ---
HPI - Abdominal Pain <Rosanne Simental PA-C - Last Filed: 10/27/24 13:54> General Chief Complaint: Abdominal Pain Stated Complaint: abd and back px x4days Time Seen by Provider: 10/27/24 12:26 History of Present Illness HPI narrative: Mr. Caballero is a pleasant 49-year-old male with a past medical history of diverticulitis, alcohol-induced hepatitis and pancreatitis, hypercholesterolemia who presents to the emergency department for right upper quadrant abdominal pain and back pain x 5 days. Patient reports that he 1st was having what he describes as muscle soreness diffusely across his upper and lower back and also neck. States that at this time he is started having some right upper quadrant abdominal discomfort as well. States that the back soreness has completely gone away but the right upper quadrant abdominal pain has gotten worse. Feels bloated. Describes the pain as mild and only present with movement, after eating, flexing his abdominal muscles and taking a deep breath. Denies associated symptoms of nausea, vomiting, fevers, chills, diarrhea, constipation, melena, hematochezia, dysuria, hematuria, chest pain, shortness of breath. He has not taken any medications prior to arrival. Patient has been sober from alcohol since the early . Related Data Home Medications Medication Instructions Recorded Confirmed atorvastatin 40 mg tablet 40 mg PO DAILY 05/12/22 05/12/22 Previous Rx's Medication Instructions Recorded ciprofloxacin HCl 500 mg tablet 500 mg PO BID #14 tabs 09/22/22 (Cipro) hydrocodone 5 mg-acetaminophen 325 1 tab PO Q6H PRN pain #16 tabs 09/22/22 mg tablet metoclopramide HCl 10 mg tablet 10 mg PO Q6H PRN nausea and 09/22/22 (Reglan) vomiting #14 tabs metronidazole 500 mg tablet 500 mg PO TID #21 tabs 09/22/22 hydrocodone 5 mg-acetaminophen 325 1 tab PO Q4-6H PRN pain #10 tabs 12/31/22 mg tablet ondansetron 4 mg disintegrating 4 mg PO TID-QID PRN nausea and 12/31/22 tablet vomiting #10 tabs Allergies Allergy/AdvReac Type Severity Reaction Status Date / Time Penicillins [PENICILLINS] Allergy Unknown Verified 05/12/22 09:49 Review of Systems <Rosanne Simental PA-C - Last Filed: 10/27/24 13:54> Review of Systems ROS Unobtainable: All systems reviewed & are unremarkable except as noted in HPI and below Patient History <Rosanne Simental PA-C - Last Filed: 10/27/24 13:54> Medical History Fistula Injury of left lower arm Hypercholesteremia Social History household members: spouse Smoking Status: Former smoker alcohol intake: never Smoking Status: Former smoker alcohol intake frequency: a few times a month Exam <Rosanne Simental PA-C - Last Filed: 10/27/24 13:54> Narrative Exam Narrative: GENERAL: 49 year old patient appears stated age. Obese patient, in no acute distress. HEAD: Atraumatic. Normocephalic. NECK: Trachea midline. Cervical ROM intact. CARDIOVASCULAR: Regular rate and rhythm. RESPIRATORY: ?Nonlabored respirations. ?Speaking in clear, full sentences. ?Clear to auscultation. Breath sounds equal bilaterally. No wheezes, rales, or rhonchi. ? GASTROINTESTINAL: Abdomen protuberant but soft and not distended. Bowel sounds present. Subjective pain in the right upper quadrant but no tenderness, negative Warren's sign. No rebound or guarding. EXTREMITIES: No edema or joint tenderness. BACK: Nontender without deformity or crepitance. No flank tenderness. No CVA tenderness. NEURO: AOx3. ?Clear speech. ?Moves all 4 extremities appropriately. SKIN: No rash or erythema of visible areas Initial Vital Signs Initial Vital Signs: Vital Signs Temperature 97.4 F L 10/27/24 12:04 Pulse Rate 85 10/27/24 12:04 Respiratory Rate 16 10/27/24 12:04 Blood Pressure 133/100 H 10/27/24 12:04 Pulse Oximetry 98 10/27/24 12:04 Oxygen Delivery Method Room Air 10/27/24 12:04 <Idalia Gonzales MD - Last Filed: 10/27/24 15:25> Initial Vital Signs Initial Vital Signs: Vital Signs Temperature 97.4 F L 10/27/24 12:04 Pulse Rate 85 10/27/24 12:04 Respiratory Rate 16 10/27/24 12:04 Blood Pressure 133/100 H 10/27/24 12:04 Pulse Oximetry 98 10/27/24 12:04 Oxygen Delivery Method Room Air 10/27/24 12:04 Course <Rosanne Simental PA-C - Last Filed: 10/27/24 13:54> Orders Ordered: ED Orders 10/27/24 12:18 Complete Blood Count AUTO DIFF Stat Comprehensive Metabolic Panel Stat Lipase Stat Prothrombin Time INR Stat Troponin & CK Cardiac Panel Stat Urinalysis and Microscopic Stat 10/27/24 12:36 XR chest 1V Stat EKG-12 Lead Stat 10/27/24 12:37 CT abdomen pelvis w con Stat Discontinued Medications Aspirin (Aspirin Ec 325 Mg Tablet) 325 mg PO NOW ONE Stop: 10/27/24 12:37 Last Admin: 10/27/24 13:03 Dose: 325 mg Documented By: SIMONE Ondansetron HCl (Ondansetron 4 Mg/2 Ml Inj) 4 mg IV NOW PRN PRN Reason: Nausea And Vomiting Ondansetron HCl (Ondansetron 4 Mg Odt) 4 mg PO NOW PRN PRN Reason: Nausea And Vomiting Pantoprazole Sodium (Pantoprazole 40 Mg Vial) 20 mg IV NOW ONE Stop: 10/27/24 12:37 Last Admin: 10/27/24 13:02 Dose: 20 mg Documented By: SIMONE Vital Signs Vital signs: Vital Signs - 8 hr 10/27/24 12:04 10/27/24 13:41 Temperature 97.4 F L Pulse Rate 85 77 Respiratory Rate 16 Blood Pressure 133/100 H 130/82 Pulse Oximetry 98 97 Oxygen Delivery Method Room Air Room Air <Idalia Gonzales MD - Last Filed: 10/27/24 15:25> Orders Ordered: ED Orders 10/27/24 12:18 Complete Blood Count AUTO DIFF Stat Comprehensive Metabolic Panel Stat Lipase Stat Prothrombin Time INR Stat Troponin & CK Cardiac Panel Stat Urinalysis and Microscopic Stat 10/27/24 12:36 XR chest 1V Stat EKG-12 Lead Stat 10/27/24 12:37 CT abdomen pelvis w con Stat Discontinued Medications Aspirin (Aspirin Ec 325 Mg Tablet) 325 mg PO NOW ONE Stop: 10/27/24 12:37 Last Admin: 10/27/24 13:03 Dose: 325 mg Documented By: SIMONE Ondansetron HCl (Ondansetron 4 Mg/2 Ml Inj) 4 mg IV NOW PRN PRN Reason: Nausea And Vomiting Ondansetron HCl (Ondansetron 4 Mg Odt) 4 mg PO NOW PRN PRN Reason: Nausea And Vomiting Pantoprazole Sodium (Pantoprazole 40 Mg Vial) 20 mg IV NOW ONE Stop: 10/27/24 12:37 Last Admin: 10/27/24 13:02 Dose: 20 mg Documented By: SIMONE Vital Signs Vital signs: Vital Signs - 8 hr 10/27/24 12:04 10/27/24 13:41 Temperature 97.4 F L Pulse Rate 85 77 Respiratory Rate 16 Blood Pressure 133/100 H 130/82 Pulse Oximetry 98 97 Oxygen Delivery Method Room Air Room Air MDM - Abdominal Pain <Rosanne Simental PA-C - Last Filed: 10/27/24 13:54> Medical Records Attestation: I reviewed the patient's medical records. Lab Data 10/27/24 12:18 10/27/24 12:18 Labs: Lab Results 10/27/24 Range/Units 12:18 WBC 5.7 (4.5-11.0) X10^3/uL RBC 5.12 (4.5-5.9) X10^6/uL Hgb 16.1 (13.5-17.5) g/dL Hct 47.4 (41-53) % MCV 92.5 (80-100) fL MCH 31.5 (26-34) PG MCHC 34.1 (30-36) % RDW 13.2 (11.6-14.8) % Plt Count 222 (150-400) X10^3/uL Neut % (Auto) 60.9 (50-75) % Lymph % (Auto) 29.8 (25-40) % [place] % (Auto) 7.3 (3-14) % Eos % (Auto) 1.2 L (2-4) % Baso % (Auto) 0.8 (0-2) % Neut # (Auto) 3500 (7964-5125) /uL Lymph # (Auto) 1700 (2071-3589) /uL [place] # (Auto) 400 (0-900) /uL Eos # (Auto) 100 (0-450) /uL Baso # (Auto) 0 (0-100) /uL PT 11.2 (9.4-12.5) SECONDS INR 1.0 (0.9-1.3) Sodium 139 (137-145) mmol/L Potassium 4.1 (3.4-5.1) mmol/L Chloride 105 (98-107) mmol/L Carbon Dioxide 25 (22-32) mmol/L BUN 13 (9-20) mg/dL Creatinine 0.92 (0.66-1.25) mg/dL Estimated GFR > 60 (>60) mL/min BUN/Creatinine Ratio 14.1 (6-22) Glucose 101 H (70-100) mg/dL Calcium 9.6 (8.4-10.2) mg/dL Total Bilirubin 1.5 H (0.2-1.3) mg/dL AST 43 (17-59) IU/L ALT 51 H (<50) IU/L Alkaline Phosphatase 44 (38-126) U/L Total Creatine Kinase 107 (55-170) U/L Troponin I < 0.012 (0.01-0.034) ng/mL Total Protein 8.6 H (6.3-8.2) g/dL Albumin 5.1 H (3.5-5.0) g/dL Globulin 3.5 (1.7-4.1) g/dL Albumin/Globulin Ratio 1.5 (1.0-2.8) Lipase 85 (23-300) U/L Urine Color Yellow Urine Appearance Clear Urine pH 6.0 (4.5-8.0) Ur Specific Sieper 1.015 (1.000-1.035) Urine Protein Negative (Negative) Urine Glucose (UA) Negative (Negative) g/dL Urine Ketones Negative (NEGATIVE) Urine Occult Blood Negative (Negative) Urine Nitrate Negative (Negative) Urine Bilirubin Negative (NEGATIVE) Urine Urobilinogen 0.2 (0.2) E.U./dL Ur Leukocyte Esterase Negative (NEGATIVE) Urine RBC None seen (0-5/HPF) Urine WBC None seen (0-5/HPF) Ur Squamous Epith Cells None seen (0-5/HPF) Urine Bacteria None seen (None) Ur Culture Indicated? Cult not indicated Vol Urine Centrifuged 10ml (spun) Imaging Data Chest x-ray: Radiologist's Impression: PROCEDURE: XR CHEST 1V INDICATIONS: RUQ abd pain, pain deep breath TECHNIQUE: One view of the chest was acquired. COMPARISON: None. FINDINGS: Surgical changes and devices: None. Lungs and pleura: Lungs are clear. No pleural effusions or pneumothorax. Mediastinum: Mediastinal contours appear normal. Heart size is normal. Bones and chest wall: No suspicious bony lesions. Overlying soft tissues appear unremarkable. IMPRESSION: Mildly reduced inspiratory volume, no acute disease. CT scan - abdomen/pelvis: Radiologist's Impression: PROCEDURE: CT ABDOMEN PELVIS W CON INDICATIONS: RUQ abd pain TECHNIQUE: After the administration of intravenous contrast, axial sections acquired from the lung bases to the pubic symphysis. Coronal and sagittal reformats were performed. For radiation dose reduction, the following was used: automated exposure control, adjustment of mA and/or kV according to patient size. COMPARISON: [facility], CT, CT ABDOMEN PELVIS W CON, 09/22/2022, 5:36. FINDINGS: Image quality: Diagnostic. Lower Chest: No significant findings. ABDOMEN: Liver: No solid mass. Gallbladder: Cholelithiasis without wall thickening or adjacent fat stranding to suggest acute cholecystitis. Biliary ducts: No biliary dilation. Pancreas: No ductal dilation. Spleen: Size is within normal limits. Adrenal Glands: No adrenal nodules. Kidneys and Ureters: No hydronephrosis. No solid mass. No complex renal cystic lesion which requires follow up. 5-6 mm nonobstructing right-sided nephrolithiasis. Stomach and Bowel: Normal colonic caliber, without significant wall thickening. Normal appendix. Colonic diverticulosis without evidence of diverticulitis. Peritoneum: No abnormal intraperitoneal fluid. No free air. Ventral Wall: No significant ventral hernia. Abdominal Nodes: No retroperitoneal or mesenteric adenopathy by size criteria. Vessels: Aorta and inferior vena cava are normal in size. PELVIS: Pelvic Organs: Unremarkable. Bladder: No bladder wall thickening, accounting for underdistention. Pelvic Nodes: No enlarged lymph nodes. Miscellaneous: Small right inguinal hernia containing fat. Bones: No aggressive osseous abnormality. IMPRESSION: Cholelithiasis without wall thickening or adjacent fat stranding to suggest acute cholecystitis. Right upper quadrant pain may indicate symptomatic cholelithiasis, and surgical referral should be considered. Normal appendix. Colonic diverticulosis without evidence of diverticulitis. Nonobstructing 5-6 mm right-sided nephrolithiasis without hydronephrosis. MDM Narrative Medical decision making narrative: 49-year-old male with a past medical history of diverticulitis, alcohol-induced hepatitis and pancreatitis, hypercholesterolemia who presents to the emergency department for right upper quadrant abdominal pain and back pain x 5 days. Differential diagnosis includes but is not limited to cholecystitis, cholelithiasis, ACS/OK, pneumonia, diverticulitis, pancreatitis, electrolyte abnormality, nephrolithiasis, ureterolithiasis, abdominal muscle strain, etc. On exam the patient is in no acute distress, nontoxic appearing. BP 133/100 and triage, pulse 85, RR 16, temp 97.4?, O2 sat 98 on room air. On exam he has subjective right upper quadrant abdominal tenderness worse with movement which has been getting worse over the last 5 days. He does not have any reproducible abdominal tenderness or flank tenderness. Abdominal labs were obtained in triage however we will add on EKG, chest x-ray, troponin to rule out atypical OK. We will treat with aspirin, Protonix, patient denies the need for strong medication at this time. We will obtain CT abdomen and pelvis to rule out intra-abdominal pathology given history of diverticulitis, pancreatitis, hepatitis, concern for possible gallbladder problem. ECG reviewed with attending physician Dr. Gonzales. No priors on file. ECg reveals rate 69, regular rhythm, incomplete right bundle branch block. Chest x-ray reveals mildly reduced inspiratory volume, no acute disease. Labs reveal negative troponin (no repeat necessary, no CP, abd pain x 5 days), normal WBC count 5.7. Hemoglobin 16.1. Hematocrit 47.4. Sodium 139. Potassium 4.1. BUN 13 creatinine 0.92. Glucose 101. Total bilirubin slightly elevated at 1.5. ALT elevated barely at 51. Total protein and albumin also slightly elevated at 8.6 and 5.1 respectively. Lipase normal 85. UA negative for infection. Discussed all labs w/ pt including abnormals. CT abdomen and pelvis reveals cholelithiasis without wall thickening or adjacent fat stranding to suggest acute cholecystitis. Normal appendix. Colonic diverticulosis without diverticulitis. Nonobstructing 5-6 mm right-sided nephrolithiasis without hydronephrosis. Patient's symptoms consistent with cholelithiasis without acute cholecystitis. He is feeling better after ED treatment and abdomen continues to be nontender and soft. We discussed low-fat diet and follow up with General surgery for elective cholecystectomy. Discussed signs and symptoms to return to the ER for, strict ER return precautions. He was provided with card for establishing primary care follow up. Patient verbalized understanding of all information, is agreeable to the plan, is eager for discharge home. Vital signs improved, blood pressure normalized. Stable for discharge at this time. <Idalia Gonzales MD - Last Filed: 10/27/24 15:25> Lab Data Labs: Lab Results 10/27/24 Range/Units 12:18 WBC 5.7 (4.5-11.0) X10^3/uL RBC 5.12 (4.5-5.9) X10^6/uL Hgb 16.1 (13.5-17.5) g/dL Hct 47.4 (41-53) % MCV 92.5 (80-100) fL MCH 31.5 (26-34) PG MCHC 34.1 (30-36) % RDW 13.2 (11.6-14.8) % Plt Count 222 (150-400) X10^3/uL Neut % (Auto) 60.9 (50-75) % Lymph % (Auto) 29.8 (25-40) % [place] % (Auto) 7.3 (3-14) % Eos % (Auto) 1.2 L (2-4) % Baso % (Auto) 0.8 (0-2) % Neut # (Auto) 3500 (9384-6298) /uL Lymph # (Auto) 1700 (3310-7316) /uL [place] # (Auto) 400 (0-900) /uL Eos # (Auto) 100 (0-450) /uL Baso # (Auto) 0 (0-100) /uL PT 11.2 (9.4-12.5) SECONDS INR 1.0 (0.9-1.3) Sodium 139 (137-145) mmol/L Potassium 4.1 (3.4-5.1) mmol/L Chloride 105 (98-107) mmol/L Carbon Dioxide 25 (22-32) mmol/L BUN 13 (9-20) mg/dL Creatinine 0.92 (0.66-1.25) mg/dL Estimated GFR > 60 (>60) mL/min BUN/Creatinine Ratio 14.1 (6-22) Glucose 101 H (70-100) mg/dL Calcium 9.6 (8.4-10.2) mg/dL Total Bilirubin 1.5 H (0.2-1.3) mg/dL AST 43 (17-59) IU/L ALT 51 H (<50) IU/L Alkaline Phosphatase 44 (38-126) U/L Total Creatine Kinase 107 (55-170) U/L Troponin I < 0.012 (0.01-0.034) ng/mL Total Protein 8.6 H (6.3-8.2) g/dL Albumin 5.1 H (3.5-5.0) g/dL Globulin 3.5 (1.7-4.1) g/dL Albumin/Globulin Ratio 1.5 (1.0-2.8) Lipase 85 (23-300) U/L Urine Color Yellow Urine Appearance Clear Urine pH 6.0 (4.5-8.0) Ur Specific Sieper 1.015 (1.000-1.035) Urine Protein Negative (Negative) Urine Glucose (UA) Negative (Negative) g/dL Urine Ketones Negative (NEGATIVE) Urine Occult Blood Negative (Negative) Urine Nitrate Negative (Negative) Urine Bilirubin Negative (NEGATIVE) Urine Urobilinogen 0.2 (0.2) E.U./dL Ur Leukocyte Esterase Negative (NEGATIVE) Urine RBC None seen (0-5/HPF) Urine WBC None seen (0-5/HPF) Ur Squamous Epith Cells None seen (0-5/HPF) Urine Bacteria None seen (None) Ur Culture Indicated? Cult not indicated Vol Urine Centrifuged 10ml (spun) Discharge Plan Departure Patient Disposition: Home Clinical Impression: Cholelithiasis Qualifiers: Cholelithiasis location: gallbladder Cholecystitis presence: without cholecystitis Biliary obstruction: without biliary obstruction Qualified Code(s): K80.20 - Calculus of gallbladder without cholecystitis without obstruction Instructions: DI for Gallstones Activity Restrictions/Additional Instructions: Dear Melissa Federico, Today you were evaluated for right upper quadrant abdominal pain. We completed both a cardiac and abdominal workup. The CT scan of your abdomen and pelvis revealed cholelithiasis which means gallstones in your gallbladder. You do also have a nonobstructing kidney stone on the right side. It is very important to eat a healthy, low-fat diet when you have gallstones. You need to call and schedule an appointment with a surgeon for further evaluation. You may call to schedule an appointment with [facility] at [phone] to schedule an appointment with Dr. Tirado. Return to the ER immediately if you develop severe pain, persistent vomiting, fevers, chills, yellowing of the skin, any other concerns. Please take Ibuprofen (Motrin/Advil) or Acetaminophen (Tylenol) for pain. These are available over the counter. You may take Ibuprofen 600 mg every 8 hours with food for pain. You may also take Acetaminophen 650 mg every 4-6 hours for pain. Do not exceed 3000 mg of Tylenol a day as this can cause liver damage. Do not drink alcohol with either of these medications. Please follow up with your primary care doctor within the next 2-3 days for ER follow-up. (If you do not have a PCP you can call [phone]. ?to schedule an appointment with an [facility] Primary Care Provider) IF YOU DEVELOP ANY NEW OR WORSENING SYMPTOMS, RETURN TO THE ER! Please read the attached instructions, they highlight more specific treatments and interventions for you at home. Thank you for letting me participate in your care, Rosanne Simental PA-C Prescriptions: No Action atorvastatin 40 mg tablet 40 mg PO DAILY Patient Comments: TAKE ONE TABLET BY MOUTH ONCE NIGHTLY ciprofloxacin HCl [Cipro] 500 mg tablet 500 mg PO BID Qty: 14 0RF metronidazole 500 mg tablet 500 mg PO TID Qty: 21 0RF hydrocodone-acetaminophen 5-325 mg tablet 1 tab PO Q6H PRN (Reason: pain) Qty: 16 0RF metoclopramide HCl [Reglan] 10 mg tablet 10 mg PO Q6H PRN (Reason: nausea and vomiting) Qty: 14 0RF hydrocodone-acetaminophen 5-325 mg tablet 1 tab PO Q4-6H PRN (Reason: pain) Qty: 10 0RF ondansetron 4 mg tablet,disintegrating 4 mg PO TID-QID PRN (Reason: nausea and vomiting) Qty: 10 0RF Referrals: Ester Staples PA-C [Primary Care Provider] - Stand Alone Forms: Patient Portal/API/Survey ED Sign-out <Idalia Gonzales MD - Last Filed: 10/27/24 15:25> Cosign ED Attending Celina Attestation: I was immediately available in the department for consultation throughout this patient's visit. Idalia Gonzales MD
[2024-10-27 12:35] LABS: Add Manual Diff / Slide Review NO; Basophils Absolute Auto 0 /uL (0-100); Basophils Percent Auto 0.8 % (0-2); Eosinophils Absolute Auto 100 /uL (0-450); Eosinophils Percent Auto 1.2 % (2-4); Hematocrit 47.4 % (41-53); Hemoglobin 16.1 g/dL (13.5-17.5); Lymphocytes Absolute Auto 1700 /uL (1100-4500); Lymphocytes Percent Auto 29.8 % (25-40); Mean Corpuscular HGB Conc 34.1 % (30-36); Mean Corpuscular Hemoglobin 31.5 PG (26-34); Mean Corpuscular Volume 92.5 fL (80-100); Monocytes Absolute Auto 400 /uL (0-900); Monocytes Percent Auto 7.3 % (3-14); Neutrophils Absolute Auto 3500 /uL (1500-7000); Neutrophils Percent Auto 60.9 % (50-75); Platelet Count 222 X10^3/uL (150-400); Red Blood Cell Count 5.12 X10^6/uL (4.5-5.9); Red Cell Distribution Width 13.2 % (11.6-14.8); White Blood Cell Count 5.7 X10^3/uL (4.5-11.0)
--- NOTE | 2024-10-27 12:36 | DI.RAD.S_ITS ---
PROCEDURE: XR CHEST 1V INDICATIONS: RUQ abd pain, pain deep breath TECHNIQUE: One view of the chest was acquired. COMPARISON: None. FINDINGS: Surgical changes and devices: None. Lungs and pleura: Lungs are clear. No pleural effusions or pneumothorax. Mediastinum: Mediastinal contours appear normal. Heart size is normal. Bones and chest wall: No suspicious bony lesions. Overlying soft tissues appear unremarkable. IMPRESSION: Mildly reduced inspiratory volume, no acute disease. Dictated by: Nelson Linton M.D. on 10/27/2024 at 13:03 Approved by: Nelson Linton M.D. on 10/27/2024 at 13:03
[2024-10-27 12:37] LABS: Appearance Urine UA CLEAR; Bilirubin Urine UA NEGATIVE (NEGATIVE); Color Urine UA YELLOW; Glucose Urine UA NEGATIVE (Negative); Ketones Urine UA NEGATIVE (NEGATIVE); Leukocyte Esterase Urine UA NEGATIVE (NEGATIVE); Nitrite Urine UA NEGATIVE (Negative); Occult Blood Urine UA NEGATIVE (Negative); Protein Urine UA NEGATIVE (Negative); Specific Gravity Urine UA 1.015 (1.000-1.035); Urine Volume 10mL (spun); Urobilinogen Urine UA 0.2 E.U./dL (0.2)
--- NOTE | 2024-10-27 12:37 | DI.CT.S_ITS ---
PROCEDURE: CT ABDOMEN PELVIS W CON INDICATIONS: RUQ abd pain TECHNIQUE: After the administration of intravenous contrast, axial sections acquired from the lung bases to the pubic symphysis. Coronal and sagittal reformats were performed. For radiation dose reduction, the following was used: automated exposure control, adjustment of mA and/or kV according to patient size. COMPARISON: [facility], CT, CT ABDOMEN PELVIS W CON, 09/22/2022, 5:36. FINDINGS: Image quality: Diagnostic. Lower Chest: No significant findings. ABDOMEN: Liver: No solid mass. Gallbladder: Cholelithiasis without wall thickening or adjacent fat stranding to suggest acute cholecystitis. Biliary ducts: No biliary dilation. Pancreas: No ductal dilation. Spleen: Size is within normal limits. Adrenal Glands: No adrenal nodules. Kidneys and Ureters: No hydronephrosis. No solid mass. No complex renal cystic lesion which requires follow up. 5-6 mm nonobstructing right-sided nephrolithiasis. Stomach and Bowel: Normal colonic caliber, without significant wall thickening. Normal appendix. Colonic diverticulosis without evidence of diverticulitis. Peritoneum: No abnormal intraperitoneal fluid. No free air. Ventral Wall: No significant ventral hernia. Abdominal Nodes: No retroperitoneal or mesenteric adenopathy by size criteria. Vessels: Aorta and inferior vena cava are normal in size. PELVIS: Pelvic Organs: Unremarkable. Bladder: No bladder wall thickening, accounting for underdistention. Pelvic Nodes: No enlarged lymph nodes. Miscellaneous: Small right inguinal hernia containing fat. Bones: No aggressive osseous abnormality. IMPRESSION: Cholelithiasis without wall thickening or adjacent fat stranding to suggest acute cholecystitis. Right upper quadrant pain may indicate symptomatic cholelithiasis, and surgical referral should be considered. Normal appendix. Colonic diverticulosis without evidence of diverticulitis. Nonobstructing 5-6 mm right-sided nephrolithiasis without hydronephrosis. Dictated by: Costa Riddle M.D. on 10/27/2024 at 13:24 Approved by: Costa Riddle M.D. on 10/27/2024 at 13:28
[2024-10-27 12:41] LABS: Bacteria Urine None Seen; Culture Indicated Urine Cult Not Indicated; RBC Urine None Seen (0-5/HPF); Squamous Epithelial Cell Urine None Seen (0-5/HPF); WBC Urine None Seen (0-5/HPF)
--- NOTE | 2024-10-27 12:46 | EKG_ITS ---
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
[2024-10-27 12:48] LABS: Prothrombin Time 11.2 SECONDS (9.4-12.5)
[2024-10-27 12:52] LABS: Alanine Aminotransferase 51 IU/L (<50); Albumin 5.1 g/dL (3.5-5.0); Albumin Globulin Ratio 1.5 (1.0-2.8); Alkaline Phosphatase 44 U/L (38-126); Aspartate Aminotransferase 43 IU/L (17-59); BUN Creatinine Ratio 14.1 (6-22); Bilirubin Total 1.5 mg/dL (0.2-1.3); Blood Urea Nitrogen 13 mg/dL (9-20); Calcium 9.6 mg/dL (8.4-10.2); Carbon Dioxide 25 mmol/L (22-32); Chloride 105 mmol/L (98-107); Estimated Glomerular Filt Rate > 60 mL/min (>60); Globulin 3.5 g/dL (1.7-4.1); Glucose 101 mg/dL (70-100); HEMOLYSIS < 15 (0-50); Lipase 85 U/L (23-300); Potassium 4.1 mmol/L (3.4-5.1); Sodium 139 mmol/L (137-145); Total Protein 8.6 g/dL (6.3-8.2)
[2024-10-27] MEDS: PANTOPRAZOLE 40 MG VIAL 20 MG IV (13:02)
[2024-10-27] MEDS: ASPIRIN EC 325 MG TABLET PO (13:03)
[2024-10-27 13:05] LABS: Creatine Kinase 107 U/L (55-170)
--- NOTE | 2024-10-27 13:11 | PC.NURSE ---
Upon performing the EKG this RN handed the EKG to Ciara Simental. Ciara Simental went with EKG in hand to Dr. Gonzales for consult.
[2024-10-27 13:18] LABS: Troponin I < 0.012 ng/mL (0.01-0.034)
[2024-10-27 13:41] VITALS: BP 130/82; PULSE 77; O2SAT 97
== END 2024-10-27 13:57 | disposition home or self-care (01) ==
PROVIDERS: Emergency Medicine; Emergency Provider Physician Assistant; PCP Physician Assistant
DX: K80.20 Calculus of gallbladder without cholecystitis without obstruction (principal)
CPT/HCPCS: 36415; 71045; 74177; 80053; 81001; 82550; 83690; 84484; 85025; 85610; 93005; 93010; 96374; 99284; J2470; Q9967

== ENCOUNTER 2024-11-01 09:04 | Day surgery (SDC) | payer OTHER, SELFPAY ==
[2024-10-31 08:45] VITALS: BMI 32.1
[2024-11-01] VITALS (13 sets, daily range): BP systolic 113–131; BP diastolic 70–84; PULSE 78–103; RESP 12–22; TEMP 36.6–36.9; O2SAT 92–98; BMI 30.8
--- NOTE | 2024-11-01 | DI.RAD.S_ITS ---
PROCEDURE: XR CHOLANGIOGRAM OPERATIVE INDICATIONS: LAP ALYSSA COMPARISON: None. FINDINGS: Biliary ducts: The surgeon injected contrast into the biliary ducts after cannulation of the cystic duct stump. Visualized intra- and extrahepatic bile ducts are normal in caliber, without strictures. No intraluminal filling defects to suggest retained ductal stones or sludge. No evidence for iatrogenic ductal injury. Duodenum: Contrast flows promptly through the sphincter of Oddi into the duodenum, which appears normal in caliber. IMPRESSION: Normal operative cholangiogram study. Single C-arm image. Dictated by: Gustavo Shore M.D. on 11/03/2024 at 8:21 Approved by: Gustavo Shore M.D. on 11/03/2024 at 8:25
--- NOTE | 2024-11-01 | PATH_ITS ---
[facility] Accession Number: [id number] No. of containers..01 Tissue . 01 Material submitted: . gallbladder - GALLBLADDER AND CONTENTS . 01 Diagnosis: GALLBLADDER AND CONTENTS, CHOLECYSTECTOMY: Mild chronic calculous cholecystitis. Benign lymph node of cystic duct with reactive fatty changes. Negative for dysplasia and malignancy. [facility] 11/06/2024 1529 Local . 01 Electronically signed: . Muriel Trivedi MD, Pathologist NPI- [id number] . 01 Gross description: . Specimen is received in formalin labeled with two patient identifiers and gallbladder and contents, and consists of an 8.2 x 4.0 x 3.4 cm unopened gallbladder. The serosal surface is wallace-green, smooth, and glistening, but otherwise unremarkable. There is a 0.4 x 0.3 x 0.1 cm clipped probe patent cystic duct which is inked blue. In addition, there is a 0.7 cm in greatest dimension wallace-brown, encapsulated lymph node adjacent to the cystic duct which is sectioned to show homogenous wallace cut surface. The gallbladder wall is intact and averages 0.1 cm in thickness and is otherwise unremarkable. The mucosa is wallace-green, finely granular, and there are two yellow to green multifaceted gallstones aggregating to 2.2 x 1.1 x 0.8 cm. The remaining lumen of the gallbladder is filled with approximately 30 cc of green to viscid bile. Ditching Machine Engineer sections are submitted as follows: A1: Cystic duct and lymph node bisected, and additional employment program representative sections of gallbladder. ([id number]) /GURDEEP 11/03/2024 2213 Local . 01 Pathologist provided ICD-10: K80.20 . 01 CPT . 970970 Specimen Comment: A courtesy copy of this report has been sent to [facility] Pathology Performed at: [address] [place] [place] [address] [address] [address] [facility], [place], [place] [id number] MD Chino Keyes MD Phone: [phone]
[2024-11-01] MEDS: LACTATED RINGERS 1,000 ML 42 ML IV (09:34)
--- NOTE | 2024-11-01 09:48 | PM.PREOP ---
Pre-operative Note COVID-19 COVID-19 status: Not tested Interval Note History & Physical reviewed/Exam performed by Physician: Yes Changes to H&P: No
--- NOTE | 2024-11-01 10:00 | SUR.OPER ---
Supine on padded OR bed, head on pillow, safety belt at thigh, left arm padded and tucked at side. Right arm secured on padded arm board <90 degrees abduction. Legs uncrossed. Padded footboard in place. Tape over blanket to secure lower legs.
[2024-11-01] MEDS: CEFAZOLIN 2 GM/100 ML PREMIX 100 ML IV (10:16)
[2024-11-01] MEDS: ACETAMINOPHEN IV 1,000 MG/100 ML VIAL 400 MG IV (10:30)
[2024-11-01] MEDS: BUPIVACAINE 0.25% W/ EPI 30 ML VIAL INJ (10:36)
[2024-11-01] MEDS: iopamidoL 30 ML VIAL 10 ML INTRAURETH (10:37)
--- NOTE | 2024-11-01 11:04 | P.OP_ITS ---
Operative Date/Time/Diagnoses Date of procedure: 11/01/24 Time of procedure: 11:05 Pre-op diagnosis: Chronic cholecystitis Post-op diagnosis: same Procedure & Clinicians Procedure: Laparoscopic cholecystectomy with cholangiography Same procedure as scheduled: Yes Indications: Chronic cholecystitis Surgeon: Werner Tirado Click Yes if Unassisted: Yes Anesthesia Type: General Operative Notes Findings: Normal cholangiogram Closure Type: primary Specimen(s): other (Gallbladder) Estimated Blood Loss (mL): 15 Procedure in detail: Consent was obtained. Patient was brought into the operating room suite. Patient was placed in the supine position with the arms out. General anesthesia was induced. Time-out was performed. The abdomen was prepped and draped in the usual fashion. Total of 30 mL of 0.5% Marcaine were infiltrated in all trocar sites. 5 mm optical trocar was placed in the left upper quadrant. Pneumoperitoneum was achieved. The abdomen was inspected. Abnormalities noted included adhesions to the gallbladder. 11 mm trocar placed in the umbilicus. Two additional 5 mm trocars were placed in the right upper quadrant. The gallbladder was grasped, retracted laterally and cephalad. The medial and lateral attachments of the gallbladder were opened revealing a critical view of the single cystic duct and single cystic artery. The artery was doubly clipped and divided. The duct was clipped at the junction of the infundibulum. A cystic ductotomy was made through which a cholangiogram was performed. Cholangiogram showed prompt emptying into the duodenal with bilateral intrahepatic ductal filling and no evidence of strictures or stones. Thus co mpleted the cholangiography and the catheter was removed. Three clips were then applied to the cystic duct stump. Bovie electrocautery was used to remove the gallbladder from the liver bed. Hemostasis was achieved. The gallbladder was placed in an endo-pouch and brought out through the umbilical trocar. The umbilical trocar was closed with an 0 Vicryl on a Shade-Nicolasa suture Passer. Pneumoperitoneum was relieved. Skin was closed with 4-0 Monocryl and Dermabond. Patient tolerated procedure well was transferred to PACU in stable condition for anticipated same-day discharge. Post-operative Condition: stable Disposition: PACU
[2024-11-01] MEDS: HYDROMORPHONE 1 MG INJ IV ×4 (11:21→11:41)
[2024-11-01] MEDS: LORazepam 2 MG/ML INJ 0.25 MG IV ×2 (11:40→11:51)
[2024-11-01] MEDS: OXYCODONE IR 5 MG TABLET PO (11:47)
--- NOTE | 2024-11-01 12:10 | SUR.PHASEII ---
Patient awake and waiting in Phase 2 for his ride which cannot get here until 1300. Patient comfortable, has a beverage and his call light. Will continue to monitor.
== END 2024-11-01 13:28 | disposition home or self-care (01) ==
PROVIDERS: PCP Physician Assistant; Referring Provider Surgery; Visit Provider Surgery
PROC: 0FT44ZZ Resection of Gallbladder, Percutaneous Endoscopic Approach (ICD-10-PCS; CPT 47563; principal; 2024-11-01 10:45)
DX: K80.10 Calculus of gallbladder with chronic cholecystitis without obstruction (principal); Z87.891 Personal history of nicotine dependence
CPT/HCPCS: 47563; 74300; J0134; J0690; J1100; J1171; J1885; J2060; J2250; J2405; J2704; J3010; J3490; Q9967

== ENCOUNTER 2025-04-24 06:16 | Emergency (ER) | payer OTHER, SELFPAY ==
[2025-04-24] VITALS (15 sets, daily range): BP systolic 112–128; BP diastolic 67–83; PULSE 62–90; RESP 18–19; TEMP 36.9–37.4; O2SAT 95–98; BMI 29.8
--- NOTE | 2025-04-24 06:39 | DI.CT.S_ITS ---
PROCEDURE: CT ABDOMEN PELVIS W CON INDICATIONS: LLQ pain TECHNIQUE: After the administration of intravenous contrast, axial sections acquired from the lung bases to the pubic symphysis. Coronal and sagittal reformats were performed. For radiation dose reduction, the following was used: automated exposure control, adjustment of mA and/or kV according to patient size. COMPARISON: [facility], CT, CT ABDOMEN PELVIS W CON, 10/27/2024, 13:03. FINDINGS: Image quality: Diagnostic. Lower Chest: No significant findings. ABDOMEN: Liver: No solid mass. Gallbladder: Interval resection. Biliary ducts: No biliary dilation. Pancreas: Vague subtle low-density in the pancreatic tail measuring 2.3 x 1.4 cm. Cannot exclude a very subtle focal infiltrative malignancy. Spleen: Size is within normal limits. Adrenal Glands: No adrenal nodules. Kidneys and Ureters: No hydronephrosis. No solid mass. No complex renal cystic lesion which requires follow up. Stomach and Bowel: Acute non complicated diverticulitis involving the distal descending colon. Reference axial image 86 of series 2 and 42 of series 3. No free air, free fluid, or abscess cavity. Peritoneum: No abnormal intraperitoneal fluid. No free air. Ventral Wall: No significant ventral hernia. Abdominal Nodes: No retroperitoneal or mesenteric adenopathy by size criteria. Vessels: Aorta and inferior vena cava are normal in size. PELVIS: Pelvic Organs: Unremarkable. Bladder: No bladder wall thickening, accounting for underdistention. Pelvic Nodes: No enlarged lymph nodes. Miscellaneous: No inguinal hernias are seen. Bones: No aggressive osseous abnormality. IMPRESSION: 1. Acute non complicated diverticulitis . 2. Subtle the lower density present in the tail of the pancreas, of uncertain etiology. Cannot exclude subtle findings of an infiltrative malignancy. Recommend pancreas protocol MRI. Comment: Preliminary interpretation provided by [facility]. Comment: Abnormality in the pancreatic tail which can conceivably represent very subtle changes from infiltrative malignancy, was discussed with Dr. Murillo on 04/24/2025 at 0814 hours, and pancreas protocol MRI was recommended at that time. Dictated by: Hernandez Salas M.D. on 04/24/2025 at 8:06 Approved by: Hernandez Salas M.D. on 04/24/2025 at 8:15
--- NOTE | 2025-04-24 06:39 | ED.ABDPAIN ---
HPI - Abdominal Pain <Boni Sloan, DO - Last Filed: 04/24/25 06:48> General Chief Complaint: Abdominal Pain Stated Complaint: left abd pain Time Seen by Provider: 04/24/25 06:34 Source: patient Mode of arrival: Ambulatory History of Present Illness HPI narrative: 49-year-old gentleman history of cholecystectomy dyslipidemia with a remote history of diverticulitis presents with left lower quadrant pain since last evening throbbing type pain reminds him of history of diverticulitis. He did have passed gas and have bowel movement earlier this morning. Denies any fever, chills, chest pain, back pain, urinary complaints, testicular pain, penile discharge. He last ate cookies for dinner last night. Other than what is stated 14 point review of system is negative. Related Data Home Medications ?Medication ?Instructions ?Recorded ?Confirmed ezetimibe 10 mg tablet mg PO DAILY 10/30/24 11/15/24 Previous Rx's ?Medication ?Instructions ?Recorded meloxicam 15 mg tablet 15 mg PO DAILY #30 tabs 11/01/24 tizanidine 2 mg tablet 2 mg PO Q8H PRN muscle spasticity 11/01/24 or pain #90 tabs amoxicillin 875 mg-potassium 1 tab PO Q12H #28 tabs 04/24/25 clavulanate 125 mg tablet hydrocodone 5 mg-acetaminophen 325 1 tab PO Q4H PRN pain #18 tabs 04/24/25 mg tablet ibuprofen 800 mg tablet 800 mg PO Q8H PRN pain #30 tabs 04/24/25 metronidazole 500 mg tablet 500 mg PO Q8H #42 tabs 04/24/25 Allergies Allergy/AdvReac Type Severity Reaction Status Date / Time Penicillins (PENICILLINS) Allergy Unknown childhood Verified 11/15/24 14:51 reaction-unknown ciprofloxacin (From Cipro) AdvReac Unknown right Verified 11/15/24 14:51 bicep muscle ripped Review of Systems <Boni Sloan, DO - Last Filed: 04/24/25 06:48> Review of Systems ROS Unobtainable: All systems reviewed & are unremarkable except as noted in HPI and below Patient History <Boni Sloan, DO - Last Filed: 04/24/25 06:48> Medical History (Updated 04/24/25 @ 11:44 by Armando Murillo MD) Diverticulosis Pancreatitis Fistula Injury of left lower arm Hypercholesteremia Social History household members: spouse alcohol intake: former alcohol intake frequency: a few times a month Exam <Boni Sloan DO - Last Filed: 04/24/25 06:48> Narrative Exam Narrative: GENERAL: [49] year old patient appears stated age. Well-developed patient, in mild distress. HEAD: Atraumatic. Normocephalic. EYES: Pupils equal round and reactive. Extraocular motions intact. No scleral icterus. No injection or drainage. ENT: Nose without bleeding, purulent drainage. Throat without erythema, tonsillar hypertrophy or exudate. Airway patent. NECK: Trachea midline. Non tender CARDIOVASCULAR: Regular rate and rhythm without murmurs, gallops, or rubs. RESPIRATORY: Clear to auscultation. Breath sounds equal bilaterally. No wheezes, rales, or rhonchi. GASTROINTESTINAL: Abdomen soft, LLQ pain no r/r/g, nondistended. EXTREMITIES: No edema or joint tenderness. BACK: Nontender without deformity or crepitance. No flank tenderness. NEURO: AOx3. SKIN: No rash or erythema of visible areas Initial Vital Signs Initial Vital Signs: Vital Signs Pulse Rate 85 04/24/25 06:24 Respiratory Rate 18 04/24/25 06:24 Blood Pressure 123/76 04/24/25 06:24 Pulse Oximetry 98 04/24/25 06:24 Oxygen Delivery Method Room Air 04/24/25 06:24 <Armando Murillo MD - Last Filed: 04/24/25 12:06> Initial Vital Signs Initial Vital Signs: Vital Signs Pulse Rate 85 04/24/25 06:24 Respiratory Rate 18 04/24/25 06:24 Blood Pressure 123/76 04/24/25 06:24 Pulse Oximetry 98 04/24/25 06:24 Oxygen Delivery Method Room Air 04/24/25 06:24 Course <Boni Sloan DO - Last Filed: 04/24/25 06:48> Orders Ordered: ED Orders 04/24/25 06:28 EKG-12 Lead Stat 04/24/25 06:35 Complete Blood Count AUTO DIFF Stat Comprehensive Metabolic Panel Stat Lipase Stat 04/24/25 06:39 CT abdomen pelvis w con Stat 04/24/25 08:40 MR Ab Pancreatic/MRCP protocol Stat Ondansetron HCl (Ondansetron 4 Mg/2 Ml Inj) 4 mg IV NOW PRN PRN Reason: Nausea And Vomiting Ondansetron HCl (Ondansetron 4 Mg Odt) 4 mg PO NOW PRN PRN Reason: Nausea And Vomiting Discontinued Medications Hydromorphone HCl (Hydromorphone 1 Mg Inj) 1 mg IV NOW ONE Stop: 04/24/25 08:18 Last Admin: 04/24/25 08:30 Dose: 1 mg Documented By: MAIRA Lactated Ringer's (Lactated Ringers) 1,000 mls @ 1,000 mls/hr IV BOLUS ONE Stop: 04/24/25 07:38 Last Infusion: 04/24/25 08:30 Dose: Infused Documented By: Admin: 04/24/25 06:46 Dose: 1,000 mls/hr Documented By: DARIN Metronidazole (Flagyl) 500 mg in 100 mls @ 100 mls/hr IV NOW ONE Stop: 04/24/25 08:45 Last Infusion: 04/24/25 10:27 Dose: Infused Documented By: Admin: 04/24/25 08:29 Dose: 100 mls/hr Documented By: MAIRA Piperacillin Sod/Tazobactam (Sod 4.5 gm/ Sodium Chloride) 100 mls @ 200 mls/hr IV NOW ONE Stop: 04/24/25 07:51 Last Admin: 04/24/25 10:24 Dose: 200 mls/hr Documented By: Ketorolac Tromethamine (Ketorolac 30 Mg/Ml Vial) 30 mg IV NOW ONE Stop: 04/24/25 06:40 Last Admin: 04/24/25 06:46 Dose: 30 mg Documented By: DARIN Vital Signs Vital signs: Vital Signs - 8 hr 04/24/25 06:24 04/24/25 06:30 04/24/25 07:06 Temperature 99.4 F Pulse Rate 85 88 Respiratory Rate 18 Blood Pressure 123/76 Pulse Oximetry 98 97 Oxygen Delivery Method Room Air 04/24/25 07:07 04/24/25 07:07 04/24/25 07:30 Temperature Pulse Rate 77 Respiratory Rate Blood Pressure 127/67 119/75 Pulse Oximetry 97 Oxygen Delivery Method 04/24/25 07:30 04/24/25 08:00 04/24/25 08:00 Temperature Pulse Rate 75 74 Respiratory Rate Blood Pressure 118/79 Pulse Oximetry 96 98 Oxygen Delivery Method 04/24/25 08:30 04/24/25 08:30 04/24/25 08:38 Temperature Pulse Rate 68 71 Respiratory Rate Blood Pressure 124/78 Pulse Oximetry 98 98 Oxygen Delivery Method Room Air 04/24/25 08:38 04/24/25 09:35 04/24/25 09:36 Temperature Pulse Rate 90 Respiratory Rate Blood Pressure 128/83 116/77 Pulse Oximetry 95 Oxygen Delivery Method 04/24/25 09:36 04/24/25 10:00 04/24/25 10:00 Temperature Pulse Rate 88 73 Respiratory Rate Blood Pressure 120/79 Pulse Oximetry 98 97 Oxygen Delivery Method 04/24/25 10:30 04/24/25 10:30 04/24/25 11:00 Temperature Pulse Rate 68 71 Respiratory Rate Blood Pressure 112/76 Pulse Oximetry 95 97 Oxygen Delivery Method Room Air 04/24/25 11:00 04/24/25 11:30 Temperature Pulse Rate 62 Respiratory Rate Blood Pressure 114/79 Pulse Oximetry 97 Oxygen Delivery Method <Armando Murillo MD - Last Filed: 04/24/25 12:06> Course Course Narrative: TYRELL: I assumed care of this patient at 7:00 a.m.. At that time CT was still pending. The patient has a known history of diverticulitis and this feels like his previous episodes. CT can firm diagnosis of uncomplicated diverticulitis. The patient was started on appropriate antibiotics which was Augmentin and Flagyl as he is allergic to Cipro. He does have a listed allergy to penicillins but he denies this and states he is always put on Augmentin for his diverticulitis episodes. The patient did have a concerning finding of pancreatic possible mass on CT and radiologist called me to recommend a MRI pancreas protocol. This was done and did not show any acutely concerning findings. Therefore, the patient was discharged on oral Augmentin and Flagyl as and also given prescription for pain medication. He was advised to return to the ER for any change or worsening in his condition, especially fevers, chills, sweats, blood in the stool, constipation, worsening or out of control pain. Otherwise, I advised him to follow up with his PCP as soon as possible. The patient was in agreement with this plan. Orders Ordered: ED Orders 04/24/25 06:28 EKG-12 Lead Stat 04/24/25 06:35 Complete Blood Count AUTO DIFF Stat Comprehensive Metabolic Panel Stat Lipase Stat 04/24/25 06:39 CT abdomen pelvis w con Stat 04/24/25 08:40 MR Ab Pancreatic/MRCP protocol Stat Ondansetron HCl (Ondansetron 4 Mg/2 Ml Inj) 4 mg IV NOW PRN PRN Reason: Nausea And Vomiting Ondansetron HCl (Ondansetron 4 Mg Odt) 4 mg PO NOW PRN PRN Reason: Nausea And Vomiting Discontinued Medications Hydromorphone HCl (Hydromorphone 1 Mg Inj) 1 mg IV NOW ONE Stop: 04/24/25 08:18 Last Admin: 04/24/25 08:30 Dose: 1 mg Documented By: MAIRA Lactated Ringer's (Lactated Ringers) 1,000 mls @ 1,000 mls/hr IV BOLUS ONE Stop: 04/24/25 07:38 Last Infusion: 04/24/25 08:30 Dose: Infused Documented By: Admin: 04/24/25 06:46 Dose: 1,000 mls/hr Documented By: DARIN Metronidazole (Flagyl) 500 mg in 100 mls @ 100 mls/hr IV NOW ONE Stop: 04/24/25 08:45 Last Infusion: 04/24/25 10:27 Dose: Infused Documented By: Admin: 04/24/25 08:29 Dose: 100 mls/hr Documented By: MAIRA Piperacillin Sod/Tazobactam (Sod 4.5 gm/ Sodium Chloride) 100 mls @ 200 mls/hr IV NOW ONE Stop: 04/24/25 07:51 Last Admin: 04/24/25 10:24 Dose: 200 mls/hr Documented By: Ketorolac Tromethamine (Ketorolac 30 Mg/Ml Vial) 30 mg IV NOW ONE Stop: 04/24/25 06:40 Last Admin: 04/24/25 06:46 Dose: 30 mg Documented By: DARIN Vital Signs Vital signs: Vital Signs - 8 hr 04/24/25 06:24 04/24/25 06:30 04/24/25 07:06 Temperature 99.4 F Pulse Rate 85 88 Respiratory Rate 18 Blood Pressure 123/76 Pulse Oximetry 98 97 Oxygen Delivery Method Room Air 04/24/25 07:07 04/24/25 07:07 04/24/25 07:30 Temperature Pulse Rate 77 Respiratory Rate Blood Pressure 127/67 119/75 Pulse Oximetry 97 Oxygen Delivery Method 04/24/25 07:30 04/24/25 08:00 04/24/25 08:00 Temperature Pulse Rate 75 74 Respiratory Rate Blood Pressure 118/79 Pulse Oximetry 96 98 Oxygen Delivery Method 04/24/25 08:30 04/24/25 08:30 04/24/25 08:38 Temperature Pulse Rate 68 71 Respiratory Rate Blood Pressure 124/78 Pulse Oximetry 98 98 Oxygen Delivery Method Room Air 04/24/25 08:38 04/24/25 09:35 04/24/25 09:36 Temperature Pulse Rate 90 Respiratory Rate Blood Pressure 128/83 116/77 Pulse Oximetry 95 Oxygen Delivery Method 04/24/25 09:36 04/24/25 10:00 04/24/25 10:00 Temperature Pulse Rate 88 73 Respiratory Rate Blood Pressure 120/79 Pulse Oximetry 98 97 Oxygen Delivery Method 04/24/25 10:30 04/24/25 10:30 04/24/25 11:00 Temperature Pulse Rate 68 71 Respiratory Rate Blood Pressure 112/76 Pulse Oximetry 95 97 Oxygen Delivery Method Room Air 04/24/25 11:00 04/24/25 11:30 Temperature Pulse Rate 62 Respiratory Rate Blood Pressure 114/79 Pulse Oximetry 97 Oxygen Delivery Method MDM - Abdominal Pain <Boni Sloan, DO - Last Filed: 04/24/25 06:48> Lab Data 04/24/25 06:35 04/24/25 06:35 Labs: Lab Results 04/24/25 Range/Units 06:35 WBC 6.2 (4.5-11.0) X10^3/uL RBC 5.13 (4.5-5.9) X10^6/uL Hgb 16.0 (13.5-17.5) g/dL Hct 47.0 (41-53) % MCV 91.5 (80-100) fL MCH 31.2 (26-34) PG MCHC 34.1 (30-36) % RDW 13.3 (11.6-14.8) % Plt Count 177 (150-400) X10^3/uL Neut % (Auto) 62.7 (50-75) % Lymph % (Auto) 25.1 (25-40) % [place] % (Auto) 9.9 (3-14) % Eos % (Auto) 1.8 L (2-4) % Baso % (Auto) 0.5 (0-2) % Neut # (Auto) 3900 (0743-0501) /uL Lymph # (Auto) 1600 (3999-2359) /uL [place] # (Auto) 600 (0-900) /uL Eos # (Auto) 100 (0-450) /uL Baso # (Auto) 0 (0-100) /uL Sodium 138 (137-145) mmol/L Potassium 4.0 (3.4-5.1) mmol/L Chloride 104 (98-107) mmol/L Carbon Dioxide 26 (22-32) mmol/L BUN 14 (9-20) mg/dL Creatinine 0.91 (0.66-1.25) mg/dL Estimated GFR > 60 (>60) mL/min BUN/Creatinine Ratio 15.4 (6-22) Glucose 107 H (70-99) mg/dL Calcium 9.2 (8.4-10.2) mg/dL Total Bilirubin 1.6 H (0.2-1.3) mg/dL AST 38 (17-59) IU/L ALT 38 (<50) IU/L Alkaline Phosphatase 49 (38-126) U/L Total Protein 7.7 (6.3-8.2) g/dL Albumin 4.7 (3.5-5.0) g/dL Globulin 3.0 (1.7-4.1) g/dL Albumin/Globulin Ratio 1.6 (1.0-2.8) Lipase 145 (23-300) U/L Point of care testing: Urine Dip Bedside Urine Glucose Negative Bedside Urine Bilirubin - Negative Bedside Urine Ketone - Negative Urine Specific Ecru 1.010 Bedside Urine Occult Blood - Negative Bedside Urine pH 6.0 Bedside Urine Protein - Negative Bedside Urine Urobilinogen - Negative Bedside Urine Nitrite - Negative Bedside Urine Leukocytes - Negative Esterase ECG Data Interpretation: NSR Hr 67 IRBBB MN 138 QRS [address]-t wave change Unchanged from 10/27/24 <Armando Murillo MD - Last Filed: 04/24/25 12:06> Differential Diagnosis Differential diagnosis: Likely abdominal pain, acute appendicitis, diverticulitis, gastroenteritis, pancreatitis and small bowel obstruction Lab Data Labs: Lab Results 04/24/25 Range/Units 06:35 WBC 6.2 (4.5-11.0) X10^3/uL RBC 5.13 (4.5-5.9) X10^6/uL Hgb 16.0 (13.5-17.5) g/dL Hct 47.0 (41-53) % MCV 91.5 (80-100) fL MCH 31.2 (26-34) PG MCHC 34.1 (30-36) % RDW 13.3 (11.6-14.8) % Plt Count 177 (150-400) X10^3/uL Neut % (Auto) 62.7 (50-75) % Lymph % (Auto) 25.1 (25-40) % [place]lands % (Auto) 9.9 (3-14) % Eos % (Auto) 1.8 L (2-4) % Baso % (Auto) 0.5 (0-2) % Neut # (Auto) 3900 (0323-5512) /uL Lymph # (Auto) 1600 (2437-4442) /uL [place] # (Auto) 600 (0-900) /uL Eos # (Auto) 100 (0-450) /uL Baso # (Auto) 0 (0-100) /uL Sodium 138 (137-145) mmol/L Potassium 4.0 (3.4-5.1) mmol/L Chloride 104 (98-107) mmol/L Carbon Dioxide 26 (22-32) mmol/L BUN 14 (9-20) mg/dL Creatinine 0.91 (0.66-1.25) mg/dL Estimated GFR > 60 (>60) mL/min BUN/Creatinine Ratio 15.4 (6-22) Glucose 107 H (70-99) mg/dL Calcium 9.2 (8.4-10.2) mg/dL Total Bilirubin 1.6 H (0.2-1.3) mg/dL AST 38 (17-59) IU/L ALT 38 (<50) IU/L Alkaline Phosphatase 49 (38-126) U/L Total Protein 7.7 (6.3-8.2) g/dL Albumin 4.7 (3.5-5.0) g/dL Globulin 3.0 (1.7-4.1) g/dL Albumin/Globulin Ratio 1.6 (1.0-2.8) Lipase 145 (23-300) U/L Point of care testing: Urine Dip Bedside Urine Glucose Negative Bedside Urine Bilirubin - Negative Bedside Urine Ketone - Negative Urine Specific Ecru 1.010 Bedside Urine Occult Blood - Negative Bedside Urine pH 6.0 Bedside Urine Protein - Negative Bedside Urine Urobilinogen - Negative Bedside Urine Nitrite - Negative Bedside Urine Leukocytes - Negative Esterase Discharge Plan Departure Patient Disposition: Home Clinical Impression: Diverticulitis Instructions: Diverticulitis Activity Restrictions/Additional Instructions: If there is any change or worsening in your condition especially out of control pain or fevers then please return to the ER right away for further evaluation. Otherwise, follow up with your primary care as soon as possible. Prescriptions: New ibuprofen 800 mg tablet 800 mg PO Q8H PRN (Reason: pain) Qty: 30 0RF hydrocodone-acetaminophen 5-325 mg tablet 1 tab PO Q4H PRN (Reason: pain) Qty: 18 0RF metronidazole 500 mg tablet 500 mg PO Q8H Qty: 42 0RF amoxicillin-pot clavulanate 875-125 mg tablet 1 tab PO Q12H Qty: 28 0RF No Action ezetimibe 10 mg tablet PO DAILY meloxicam 15 mg tablet 15 mg PO DAILY Qty: 30 0RF tizanidine 2 mg tablet 2 mg PO Q8H PRN (Reason: muscle spasticity or pain) Qty: 90 0RF Referrals: Ester Staples PA-C [Primary Care Provider, Medical] - As soon as possible Stand Alone Forms: Patient Portal/API
[2025-04-24 06:44] LABS: Add Manual Diff / Slide Review NO; Hematocrit 47.0 % (41-53); Hemoglobin 16.0 g/dL (13.5-17.5); Lymphocytes Absolute Auto 1600 /uL (1100-4500); Mean Corpuscular HGB Conc 34.1 % (30-36); Mean Corpuscular Hemoglobin 31.2 PG (26-34); Mean Corpuscular Volume 91.5 fL (80-100); Platelet Count 177 X10^3/uL (150-400)
--- NOTE | 2025-04-24 06:44 | EKG_ITS ---
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
[2025-04-24] MEDS: LACTATED RINGERS 1,000 ML 1000 ML IV (06:46)
[2025-04-24] MEDS: KETOROLAC 30 MG/ML VIAL IV (06:46)
[2025-04-24 07:02] LABS: Alanine Aminotransferase 38 IU/L (<50); Albumin 4.7 g/dL (3.5-5.0); Albumin Globulin Ratio 1.6 (1.0-2.8); Alkaline Phosphatase 49 U/L (38-126); Blood Urea Nitrogen 14 mg/dL (9-20); Calcium 9.2 mg/dL (8.4-10.2); Carbon Dioxide 26 mmol/L (22-32); Chloride 104 mmol/L (98-107); Estimated Glomerular Filt Rate > 60 mL/min (>60); Globulin 3.0 g/dL (1.7-4.1); Glucose 107 mg/dL (70-99); HEMOLYSIS 21 (0-50); Lipase 145 U/L (23-300); Potassium 4.0 mmol/L (3.4-5.1); Sodium 138 mmol/L (137-145); Total Protein 7.7 g/dL (6.3-8.2)
[2025-04-24] MEDS: metroNIDAZOLE 500 MG/100 ML PIGGYBACK 100 MG IV (08:29)
[2025-04-24] MEDS: HYDROMORPHONE 1 MG INJ IV (08:30)
--- NOTE | 2025-04-24 08:40 | DI.MRI.S_ITS ---
PROCEDURE: MR AB PANCREATIC/MRCP PROTOCOL INDICATIONS: PANCREAS PROTOCOL TECHNIQUE: Coronal HASTE through the abdomen, axial 2-D FLASH in- and [id number], and breath-hold T2 FSE with fat saturation through the biliary system and pancreas. Oblique coronal and axial thin-slice HASTE, radial thick-slab HASTE centered on the extrahepatic bile ducts. Intravenous secretin: Not requested. COMPARISON: [facility], CT, CT ABDOMEN PELVIS W CON, 10/27/2024, 13:03. [facility], CT, CT ABDOMEN PELVIS W CON, 09/22/2022, 5:36. [facility], CT, CT ABDOMEN PELVIS W CON, 04/24/2025, 6:54. FINDINGS: Image quality: Diagnostic. Gallbladder: Surgically absent. Biliary ducts: No biliary dilation. The common duct is smooth. No choledocholithiasis. Pancreas: Classic pancreatic ductal anatomy. Smooth contour. Normal caliber. The gland is slightly diminutive. The signal throughout the pancreas is homogeneous, slightly more T2 hypointense than expected, but normal T1 signal. The contour is smoother than expected. Scattered hypointensity of occasional peripheral capsular calcification is noted, best seen by CT. There are no ductal or intraglandular calcifications. No peripancreatic edema or fluid collection. No interstitial edema. Enhancement is normal and homogeneous. No enhancing or hypoenhancing mass. No restricted diffusion. OTHER: Lung bases: Unremarkable. Liver: No solid mass. Spleen: Size is within normal limits. Adrenal Glands: No adrenal nodules. Kidneys and Ureters: No hydronephrosis. No solid mass. No complex renal cystic lesion which requires follow up. Stomach and Bowel: Stomach and small bowel loops are normal. Colonic diverticulosis, particularly in the descending colon. Please see prior CT for further description of acute colonic pathology. Peritoneum: No upper abdominal fluid or drainable fluid collections. Ventral Wall: No hernia. Abdominal Nodes: No retroperitoneal or mesenteric adenopathy by size criteria. Vessels: Aorta and inferior vena cava are normal in size. Bones: No aggressive osseous abnormality. IMPRESSION: No evidence of pancreatic mass or pathologic ductal dilatation. No finding of acute pancreatitis. Unusually smooth contour of the slightly diminutive pancreas with occasional capsular calcification is nonspecific but can be seen in the setting of chronic pancreatitis or autoimmune pancreatitis. Peripancreatic calcification could be sequelae of remote trauma or injury. Dictated by: Nani Jean Baptiste M.D. on 04/24/2025 at 10:07 Approved by: Nani Jean Baptiste M.D. on 04/24/2025 at 10:34
[2025-04-24] MEDS: PIPERACILLIN/TAZO 4.5 GM in SODIUM CHLORIDE 0.9% 100 ML IV (10:24)
== END 2025-04-24 12:40 | disposition home or self-care (01) ==
PROVIDERS: Family Medicine; Emergency Provider Emergency Medicine; PCP Physician Assistant
DX: K57.92 Diverticulitis of intestine, part unspecified, without perforation or abscess without bleeding (principal)
CPT/HCPCS: 36415; 74177; 74183; 80053; 81003; 83690; 85025; 93005; 96361; 96365; 96366; 96367; 96375; 99284; A9579; J1171; J1885; J2543; Q9967

== ENCOUNTER 2025-05-19 06:44 | Inpatient (IN) | payer OTHER, SELFPAY ==
[2025-05-19] VITALS (8 sets, daily range): BP systolic 105–154; BP diastolic 63–92; PULSE 98–130; RESP 16–20; TEMP 37.2–38.2; O2SAT 94–98; BMI 30.2
--- NOTE | 2025-05-19 07:29 | ED_ITS ---
HPI - General Adult General Chief complaint: Abdominal Pain Stated complaint: Severe Stomach pain and cramps x2days, fever 100.4 Time Seen by Provider: 05/19/25 07:11 Source: patient Mode of arrival: Ambulatory History of Present Illness HPI narrative: 49-year-old gentleman with a history of hyperlipidemia, recent episode of diverticulitis chief 15th treated with metronidazole and Augmentin comes in with 48 hours of increasing abdominal pain. He notes that 2 days ago he went on a motorcycle ride to [facility] and back was having some low abdominal discomfort at the time. In the ensuing 48 hours he is now having pain that is localizing to the low pelvis significantly worse in the right lower quadrant was unable to sleep 2 nights so and last night woke up at 2:00 a.m. with severe pain. He is having trouble having a bowel movement because of the pain of Valsalva maneuver. On physical exam he has severe your abdominal pain with guarding and I am concerned with rebound in the right lower quadrant he is also quite tender in the left lower quadrant. He developed a fever over the last 24 hours, mild nausea, no vomiting, no headaches, chest pain, palpitations, dyspnea Related Data Home Medications ?Medication ?Instructions ?Recorded ?Confirmed ezetimibe 10 mg tablet mg PO DAILY 10/30/24 5 Previous Rx's ?Medication ?Instructions ?Recorded meloxicam 15 mg tablet 15 mg PO DAILY #30 tabs 10/12 12/05 tizanidine 2 mg tablet 2 mg PO Q8H PRN muscle spast icity 11/01/24 or pain #90 tabs amoxicillin 875 mg-potassium 1 tab PO Q12H #28 tabs clavulanate 125 mg tablet hydrocodone 5 mg-acetaminophen 325 1 tab PO Q4H PRN pa in #18 tabs 04/24/25 mg tablet ibuprofen 800 mg tablet 800 mg PO Q8H PRN pain #30 t abs 04/24/25 metronidazole 500 mg tablet 500 mg PO Q8H #42 tabs Allergies Allergy/AdvReac Type Severity Reaction Status Date / Time Penicillins (PENICILLINS) Allergy Unknown childhood Verified 05/19/25 06:54 reaction-unknown ciprofloxacin (From Cipro) AdvReac Unknown right Verified 05/19/25 06:54 bicep muscle ripped Review of Systems Review of Systems Narrative: Pertinent positive and negative findings as per HPI Patient History Medical History Diverticulosis Pancreatitis Fistula Injury of left lower arm Hypercholesteremia Social History household members: spouse Smoking Status: Never smoker alcohol intake: former Smoking Status: Never smoker alcohol intake frequency: a few times a month Exam Initial Vital Signs Initial Vital Signs: Vital Signs Temperature 98.9 F 05/19/25 06:54 Pulse Rate 111 H 05/19/25 06:54 Respiratory Rate 20 05/19/25 06:54 Blood Pressure 154/92 H 05/19/25 06:54 Pulse Oximetry 96 05/19/25 06:54 Oxygen Delivery Method Room Air 05/19/25 06:54 General: Healthy appearing, in obvious pain but Able to give a complete and coherent history. Well-nourished well-developed HEENT: Moist mucous membranes, normal sclera with reactive pupils, Respiratory: Lungs are clear to auscultation, no wheezing no rales no rhonchi. Full and symmetrical air movement Cardiac: Regular rate and rhythm no murmurs no bruits Abdomen: Soft, significantly tender with rebound in the right lower quadrant, guarding in the left lower quadrant and I am concerned with developing early rebound throughout the midportion of the abdomen as well Skin: Warm and dry, no rashes Neurologic: Grossly neurologically intact with no obvious asymmetries or abnormalities Extremities: No trauma, well perfused Psych: Cooperative, appropriate insight and affect Course Orders Ordered: ED Orders 05/19/25 07:25 Complete Blood Count AUTO DIFF Stat Comprehensive Metabolic Panel Stat Lactate (Lactic Acid) Stat Lipase Stat 05/19/25 07:34 CT abdomen pelvis w con Stat 05/19/25 08:44 Blood Culture Stat Hydrocodone Bitart/Acetaminophen (Hydrocodone/Acet 5/325 Tablet) 1 tab PO Q4H PRN PRN Reason: Pain, Moderate (4-6) Hydromorphone HCl (Hydromorphone Hcl 0.5 Mg/0.5 Ml Syringe) 0.5 mg IV Q2H PRN PRN Reason: Pain, Severe (7-10) Last Admin: 05/19/25 11:11 Dose: 0.5 mg Documented By: SUSIE Lactated Ringer's (Lactated Ringers) 1,000 mls @ 125 mls/hr IV CONT [facility] Last Infusion: 05/19/25 13:30 Dose: 125 mls/hr Documented By: Infusion: 05/19/25 13:02 Dose: 0 mls/hr Documented By: Admin: 05/19/25 11:11 Dose: 125 mls/hr Documented By: SUSIE Metronidazole (Flagyl) 500 mg in 100 mls @ 100 mls/hr IV Q8H [facility] Last Infusion: 05/19/25 12:53 Dose: Infused Documented By: Admin: 05/19/25 11:13 Dose: 100 mls/hr Documented By: SUSIE Ondansetron HCl (Ondansetron 4 Mg/2 Ml Inj) 4 mg IV Q4HR PRN PRN Reason: Nausea And Vomiting Last Admin: 05/19/25 11:13 Dose: 4 mg Documented By: SUSIE Discontinued Medications Hydrocodone Bitart/Acetaminophen (Hydrocodone/Acet 5/325 Tablet) 1 tab PO Q4HR PRN PRN Reason: Pain, Moderate (4-6) Hydrocodone Bitart/Acetaminophen (Hydrocodone/Acet 5/325 Tablet) 1 tab PO Q4HR PRN PRN Reason: Pain, Moderate (4-6) Hydromorphone HCl (Hydromorphone Hcl 0.5 Mg/0.5 Ml Syringe) 0.5 mg IV NOW ONE Stop: 05/19/25 07:34 Last Admin: 05/19/25 07:41 Dose: 0.5 mg Documented By: SUSIE Hydromorphone HCl (Hydromorphone Hcl 0.5 Mg/0.5 Ml Syringe) 0.5 mg IV Q2H PRN PRN Reason: Pain, Severe (7-10) Sodium Chloride (Normal Saline 0.9%) 1,000 mls @ 1,000 mls/hr IV BOLUS ONE Stop: 05/19/25 08:32 Last Infusion: 05/19/25 08:32 Dose: Infused Documented By: Admin: 05/19/25 07:41 Dose: 1,000 mls/hr Documented By: SUSIE Ceftriaxone Sodium 2,000 mg/ (Sodium Chloride) 100 mls @ 200 mls/hr IV NOW ONE Stop: 05/19/25 08:20 Last Infusion: 08/09/25 09:52 Dose: Infused Documented By: Admin: 05/19/25 08:35 Dose: 200 mls/hr Documented By: SUSIE Piperacillin Sod/Tazobactam (Sod 4.5 gm/ Sodium Chloride) 100 mls @ 200 mls/hr IV NOW ONE Stop: 05/19/25 10:21 Last Infusion: 05/19/25 13:30 Dose: Infused Documented By: Admin: 05/19/25 12:50 Dose: 200 mls/hr Documented By: SUSIE Metronidazole (Flagyl) 500 mg in 100 mls @ 100 mls/hr IV Q8H [facility] Last Infusion: 05/19/25 12:17 Dose: Infused Documented By: Admin: 05/19/25 11:11 Dose: 100 mls/hr Documented By: SUSIE Lactated Ringer's (Lactated Ringers) 1,000 mls @ 125 mls/hr IV CONT [facility] Last Admin: 05/19/25 13:58 Dose: Not Given Documented By: DWAINE Ondansetron HCl (Ondansetron 4 Mg/2 Ml Inj) 4 mg IV NOW ONE Stop: 05/19/25 07:34 Last Admin: 05/19/25 07:41 Dose: 4 mg Documented By: SUSIE Ondansetron HCl (Ondansetron 4 Mg/2 Ml Inj) 4 mg IV Q4HR PRN PRN Reason: Nausea And Vomiting Last Admin: 05/19/25 11:10 Dose: 4 mg Documented By: SUSIE Vital Signs Vital signs: Vital Signs - 8 hr 05/19/25 06:54 Temperature 98.9 F Pulse Rate 111 H Respiratory Rate 20 Blood Pressure 154/92 H Pulse Oximetry 96 Oxygen Delivery Method Room Air Medical Decision Making Lab Data 05/19/25 07:25 05/19/25 07:25 Labs: Lab Results 05/19/25 Range/Units 07:25 WBC 10.9 (4.5-11.0) X10^3/uL RBC 4.88 (4.5-5.9) X10^6/uL Hgb 15.4 (13.5-17.5) g/dL Hct 44.3 (41-53) % MCV 90.7 (80-100) fL MCH 31.6 (26-34) PG MCHC 34.8 (30-36) % RDW 13.4 (11.6-14.8) % Plt Count 169 (150-400) X10^3/uL Neut % (Auto) 82.8 H (50-75) % Lymph % (Auto) 8.4 L (25-40) % Hunt % (Auto) 8.0 (3-14) % Eos % (Auto) 0.4 L (2-4) % Baso % (Auto) 0.4 (0-2) % Neut # (Auto) 9000 H (4780-5258) /uL Lymph # (Auto) 900 L (8540-5122) /uL Hunt # (Auto) 900 (0-900) /uL Eos # (Auto) 0 (0-450) /uL Baso # (Auto) 0 (0-100) /uL Sodium 136 L (137-145) mmol/L Potassium 4.7 (3.4-5.1) mmol/L Chloride 104 (98-107) mmol/L Carbon Dioxide 24 (22-32) mmol/L BUN 13 (9-20) mg/dL Creatinine 0.95 (0.66-1.25) mg/dL Estimated GFR > 60 (>60) mL/min BUN/Creatinine Ratio 13.7 (6-22) Glucose 123 H (70-99) mg/dL Lactate 1.2 (0.7-2.1) mmol/L Calcium 9.3 (8.4-10.2) mg/dL Total Bilirubin 1.7 H (0.2-1.3) mg/dL AST 35 (17-59) IU/L ALT 29 (<50) IU/L Alkaline Phosphatase 40 (38-126) U/L Total Protein 7.6 (6.3-8.2) g/dL Albumin 4.4 (3.5-5.0) g/dL Globulin 3.2 (1.7-4.1) g/dL Albumin/Globulin Ratio 1.4 (1.0-2.8) Lipase 78 (23-300) U/L Urine Dip Bedside Urine Glucose Negative Bedside Urine Bilirubin - Negative Bedside Urine Ketone - Negative Urine Specific [place] 1.005 Bedside Urine Occult Blood - Negative Bedside Urine pH 8.0 Bedside Urine Protein - Negative Bedside Urine Urobilinogen - Negative Bedside Urine Nitrite - Negative Bedside Urine Leukocytes - Negative Esterase Point of care testing: Urine Dip Bedside Urine Glucose Negative Bedside Urine Bilirubin - Negative Bedside Urine Ketone - Negative Urine Specific [place] 1.005 Bedside Urine Occult Blood - Negative Bedside Urine pH 8.0 Bedside Urine Protein - Negative Bedside Urine Urobilinogen - Negative Bedside Urine Nitrite - Negative Bedside Urine Leukocytes - Negative Esterase Imaging Data CT scan - abdomen/pelvis: Radiologist's Impression: PROCEDURE: CT ABDOMEN PELVIS W CON INDICATIONS: Right lower quadrant pain, concern for acute surgical abdome TECHNIQUE: After the administration of intravenous contrast, axial sections acquired from the lung bases to the pubic symphysis. Coronal and sagittal reformats were performed. For radiation dose reduction, the following was used: automated exposure control, adjustment of mA and/or kV according to patient size. COMPARISON: [facility], MR, MR AB PANCREATIC/MRCP PROTOCOL, 04/24/2025, 8:59. [facility], CT, CT ABDOMEN PELVIS W CON, 04/24/2025, 6:54. [facility], CT, CT ABDOMEN PELVIS W CON, 10/27/2024, 13:03. FINDINGS: Image quality: Diagnostic. Lower Chest: No significant findings. ABDOMEN: Liver: No solid mass. Gallbladder: Status postcholecystectomy. Biliary ducts: No biliary dilation. Pancreas: No ductal dilation. Calcifications noted adjacent to the pancreatic tail. Spleen: Size is within normal limits. Adrenal Glands: No adrenal nodules. Kidneys and Ureters: No hydronephrosis. No solid mass. No complex renal cystic lesion which requires follow up. 7 mm nonobstructing calculus at the interpolar region of the right kidney (900 Hounsfield units). Bowel and peritoneum: Multiple diverticula are seen in the colon. There is an intermediate length segment of bowel wall thickening and inflammatory fat stranding surrounding a diverticulum at the sigmoid colon. Surrounding mesenteric edema and trace fluid are present without a well-defined drainable collection. There is a small focus of air that appears to be within the diverticulum although microperforation is not excluded. No signs bowel obstruction. Ventral Wall: No significant ventral hernia. Abdominal Nodes: No retroperitoneal or mesenteric adenopathy by size criteria. Vessels: Aorta and inferior vena cava are normal in size. PELVIS: Pelvic Organs: Unremarkable. Bladder: No bladder wall thickening, accounting for underdistention. Pelvic Nodes: No enlarged lymph nodes. Miscellaneous: No inguinal hernias are seen. Bones: No aggressive osseous abnormality. IMPRESSION: Acute sigmoid diverticulitis with moderate surrounding inflammatory fat stranding and trace ill-defined fluid. No drainable fluid collection. Small focus of gas is seen within or immediately adjacent to the inflamed diverticulum, and microperforation is not excluded. Approved by: Mike Caballero M.D. on 05/19/2025 at 8:18 MDM Narrative Medical decision making narrative: CC: Abdominal pain increasing for 48 hours Complicating co-morbidities: Diverticulitis treated successfully April 24 of this year Data collected from: patient Medical records reviewed: Recent ER notes reviewed On April [address] scan of the abdomen that showed uncomplicated diverticulitis with concern for pancreatic abnormality. MRCP done confirms absence of significant pancreatic pathology, specifically no mass Differential considered: Acute surgical abdomen, appendicitis, diverticulitis, bowel obstruction Exam documented above, pertinent findings include: Significant pain with very concerning abdominal exam right lower quadrant seems to be the highest area of tenderness Lab Test results independently reviewed as above. Pertinent findings: CBC shows white count normal at 10.9 with left shift at 82.8 neutrophils, no anemia Chemistries show chronically elevated bilirubin with no other changes Imaging studies independently reviewed: CT scan: Acute sigmoid diverticulitis with moderate surrounding inflammatory fat stranding and trace ill-defined fluid. No drainable fluid collection. Small focus of gas is seen within or immediately adjacent to the inflamed diverticulum, and microperforation is not excluded. Consultations: Discussed with Dr. Mckeon, general surgery Treatments: Fluids, pain medicine, ceftriaxone initiated Re-evaluations: 9am patient is re-evaluated, reviewed signs and CT scan. Still significantly tender. Discuss the possibility of hospital admission. We will revisit this after recommendations from Dr. Mckeon Discussion: 49-year-old gentleman with diverticulitis with significant inflammation and pain, no drainable abscess. Discussed with general surgery who will admit for acute diverticultis. Patient is informed of plans, questions answered Discharge Plan Departure Patient Disposition: Admitted As Inpatient Clinical Impression: Diverticulitis Admit Date/Time: 05/19/25 10:15 Admit Provider: Alexandru Mckeon
--- NOTE | 2025-05-19 07:34 | DI.CT.S_ITS ---
PROCEDURE: CT ABDOMEN PELVIS W CON INDICATIONS: Right lower quadrant pain, concern for acute surgical abdome TECHNIQUE: After the administration of intravenous contrast, axial sections acquired from the lung bases to the pubic symphysis. Coronal and sagittal reformats were performed. For radiation dose reduction, the following was used: automated exposure control, adjustment of mA and/or kV according to patient size. COMPARISON: [facility], MR, MR AB PANCREATIC/MRCP PROTOCOL, 04/24/2025, 8:59. [facility], CT, CT ABDOMEN PELVIS W CON, 04/24/2025, 6:54. [facility], CT, CT ABDOMEN PELVIS W CON, 10/27/2024, 13:03. FINDINGS: Image quality: Diagnostic. Lower Chest: No significant findings. ABDOMEN: Liver: No solid mass. Gallbladder: Status postcholecystectomy. Biliary ducts: No biliary dilation. Pancreas: No ductal dilation. Calcifications noted adjacent to the pancreatic tail. Spleen: Size is within normal limits. Adrenal Glands: No adrenal nodules. Kidneys and Ureters: No hydronephrosis. No solid mass. No complex renal cystic lesion which requires follow up. 7 mm nonobstructing calculus at the interpolar region of the right kidney (900 Hounsfield units). Bowel and peritoneum: Multiple diverticula are seen in the colon. There is an intermediate length segment of bowel wall thickening and inflammatory fat stranding surrounding a diverticulum at the sigmoid colon. Surrounding mesenteric edema and trace fluid are present without a well-defined drainable collection. There is a small focus of air that appears to be within the diverticulum although microperforation is not excluded. No signs bowel obstruction. Ventral Wall: No significant ventral hernia. Abdominal Nodes: No retroperitoneal or mesenteric adenopathy by size criteria. Vessels: Aorta and inferior vena cava are normal in size. PELVIS: Pelvic Organs: Unremarkable. Bladder: No bladder wall thickening, accounting for underdistention. Pelvic Nodes: No enlarged lymph nodes. Miscellaneous: No inguinal hernias are seen. Bones: No aggressive osseous abnormality. IMPRESSION: Acute sigmoid diverticulitis with moderate surrounding inflammatory fat stranding and trace ill-defined fluid. No drainable fluid collection. Small focus of gas is seen within or immediately adjacent to the inflamed diverticulum, and microperforation is not excluded. Approved by: Mike Caballero M.D. on 05/19/2025 at 8:18
[2025-05-19] MEDS: SODIUM CHLORIDE 0.9% 1,000 ML 1000 ML IV (07:41)
[2025-05-19] MEDS: ONDANSETRON 4 MG/2 ML INJ IV ×4 (07:41→20:21)
[2025-05-19 08:18] LABS: Alanine Aminotransferase 29 IU/L (<50); Albumin 4.4 g/dL (3.5-5.0); Albumin Globulin Ratio 1.4 (1.0-2.8); Alkaline Phosphatase 40 U/L (38-126); Blood Urea Nitrogen 13 mg/dL (9-20); Calcium 9.3 mg/dL (8.4-10.2); Carbon Dioxide 24 mmol/L (22-32); Chloride 104 mmol/L (98-107); Estimated Glomerular Filt Rate > 60 mL/min (>60); Globulin 3.2 g/dL (1.7-4.1); Glucose 123 mg/dL (70-99); Lactate (Lactic Acid) 1.2 mmol/L (0.7-2.1); Lipase 78 U/L (23-300); Potassium 4.7 mmol/L (3.4-5.1); Sodium 136 mmol/L (137-145); Total Protein 7.6 g/dL (6.3-8.2)
[2025-05-19 08:19] LABS: HEMOLYSIS 78 (0-50)
[2025-05-19 08:20] LABS: Add Manual Diff / Slide Review NO; Hematocrit 44.3 % (41-53); Hemoglobin 15.4 g/dL (13.5-17.5); Lymphocytes Absolute Auto 900 /uL (1100-4500); Mean Corpuscular HGB Conc 34.8 % (30-36); Mean Corpuscular Hemoglobin 31.6 PG (26-34); Mean Corpuscular Volume 90.7 fL (80-100); Platelet Count 169 X10^3/uL (150-400)
[2025-05-19] MEDS: cefTRIAXone 2,000 MG in SODIUM CHLORIDE 0.9% 100 ML 200 MG IV (08:35)
--- NOTE | 2025-05-19 10:07 | PM.HP.IH.1 ---
History of Present Illness History of Present Illness Date Patient Seen: 05/19/25 Time Patient Seen: 10:00 Date of Onset of Symptoms: 05/17/25 Chief complaint: Severe Stomach pain and cramps x2days, fever 100.4 Narrative: Patient is a 49-year-old white male presents to the emergency room with lower abdominal pain of 2 days' duration. Patient states he is having some dysuria. Denies any nausea vomiting denies any rectal bleeding patient had a chills and elevated temperature at home. Patient was worked up for diverticulitis as he has had multiple episodes history of chronic constipation problems perirectal abscesses with fistula and diverticular disease. Patient laboratory shows WBC of 10.9 hemoglobin is 15.4 hematocrit is 44.3 platelets a 169,000 sodium is 136 potassium is 4.7 chloride is 104 bicarb is 24 BUN of 13 creatinine 0.95 random blood sugar is 123 total bilirubin is 1.7 AST is 35 ALT is 29 alkaline phosphatase is forty lipase is 78. [address] scan was visualized which shows absent gallbladder normal appendix severe diverticular disease to the right colon patient noted to have some moderate diverticulitis of the mid sigmoid colon radiology read a small microperforation but on viewing it appears to be a small gas bubble associated with a diverticulum and stool ball with inflammation slightly inflamed onto the bladder. No signs of fistula is noted. No signs of acute surgical abdomen are noted. I was asked to see the patient for surgical evaluation. Allergies to penicillin and Cipro Medications: Patient is on Augmentin and metronidazole and other home meds. See med list Past medical history: Corrective lenses, history of left arm fracture as a child, history of diverticulitis history of a perirectal abscess with subsequent fistula and resection. Patient denies any other heart lungs digestive musculoskeletal neurological seizure disorder psychiatric problems risks of Infectious diseases HIV or AIDS. Past surgical history: Laparoscopic cholecystectomy in October of 2024, wisdom tooth extraction, right biceps tendon rupture repair, left arm ORIF, colonoscopy in 2021 negative. Social history. Patient works at the [employer] history of tobacco abuse 2 years in high school denies any alcohol since 2006 but he had a history of alcohol abuse and is recovering from this, history of marijuana usage last use several weeks ago. Vitals: Temperature is 98.9? pulse 111 respirations 20 BP is 154/92 saturation O2 is 96%, patient is 5 ft 6 inches, 190 lb. Head is normocephalic eyes PERRLA EOMI is intact nares are clear septum is midline EACs and pinnae unremarkable oropharyngeal cavity is moderate repair slightly dry heart regular rate and rhythm without murmurs lungs are clear but diminished in the bases. Abdomen is soft with hypoactive bowel sounds patient has lower abdominal pain slight rebound. Musculoskeletal moderate muscle tone and strength are bilaterally no gross deficits elicited. Impression: Lower abdominal pain left lower quadrant x2 days with CT scan showing diverticulitis moderate with possible small microperforation. Absent gallbladder normal appendix severe diverticular disease to the right colon History of chronic constipation with diverticulitis, perirectal abscesses, history of perirectal fistula WBC is 10.9 Plan: Discussed with patient the findings discussed diverticular disease and chronic constipation and is complications. Patient will be admitted for pain control IV antibiotics and hydration as patient is extremely dehydrated. Discussed with patient the complications of diverticular disease and need for emergent surgery and possible colostomy he understands we will follow patient closely we will admit when bed is available to the floor. All questions answered to patient's satisfaction no need for emergent surgical intervention at this time. [facility] Medical History Diverticulosis Pancreatitis Fistula Injury of left lower arm Hypercholesteremia Social History household members: spouse Smoking Status: Never smoker alcohol intake: former Meds Home Medications and Allergies Home Medications ?Medication ?Instructions ?Recorded ?Confirmed ?Type ezetimibe 10 mg tablet mg PO DAILY 10/30/24 11/15/24 History meloxicam 15 mg tablet 15 mg PO DAILY #30 tabs 11/01/24 11/15/24 Rx tizanidine 2 mg tablet 2 mg PO Q8H PRN muscle spasticity 11/01/24 11/15/24 Rx or pain #90 tabs amoxicillin 875 mg-potassium 1 tab PO Q12H #28 tabs 04/24/25 Rx clavulanate 125 mg tablet hydrocodone 5 mg-acetaminophen 325 1 tab PO Q4H PRN pain #18 tabs 04/24/25 Rx mg tablet ibuprofen 800 mg tablet 800 mg PO Q8H PRN pain #30 tabs 04/24/25 Rx metronidazole 500 mg tablet 500 mg PO Q8H #42 tabs 04/24/25 Rx Allergies Allergy/AdvReac Type Severity Reaction Status Date / Time Penicillins (PENICILLINS) Allergy Unknown childhood Verified 05/19/25 06:54 reaction-unknown ciprofloxacin (From Cipro) AdvReac Unknown right Verified 05/19/25 06:54 bicep muscle ripped Exam Vital Signs (past 8 hours): - 05/19/25 06:54 Temperature 98.9 F Pulse Rate 111 H Respiratory Rate 20 Blood Pressure 154/92 H Pulse Oximetry 96 Oxygen Delivery Method Room Air Oxygen Delivery Method Room Air Objective Labs 05/19/25 07:25 05/19/25 07:25 Labs: Laboratory Results - last 24 hr 05/19/25 07:25 WBC 10.9 RBC 4.88 Hgb 15.4 Hct 44.3 MCV 90.7 MCH 31.6 MCHC 34.8 RDW 13.4 Plt Count 169 Neut % (Auto) 82.8 H Lymph % (Auto) 8.4 L [place] % (Auto) 8.0 Eos % (Auto) 0.4 L Baso % (Auto) 0.4 Neut # (Auto) 9000 H Lymph # (Auto) 900 L [place] # (Auto) 900 Eos # (Auto) 0 Baso # (Auto) 0 Sodium 136 L Potassium 4.7 Chloride 104 Carbon Dioxide 24 BUN 13 Creatinine 0.95 Estimated GFR > 60 BUN/Creatinine Ratio 13.7 Glucose 123 H Lactate 1.2 Calcium 9.3 Total Bilirubin 1.7 H AST 35 ALT 29 Alkaline Phosphatase 40 Total Protein 7.6 Albumin 4.4 Globulin 3.2 Albumin/Globulin Ratio 1.4 Lipase 78 Assessment & Plan Time-Based Coding :: [TOTAL MINUTES] spent with patient and on the chart (including review of chart, obtaining history, exam, reviewing outside data, placing orders, documenting exam and treatment plan, and counseling patient) on [DATE]. PROFEE Negotiations Director Document charge(s): Yes
[2025-05-19] MEDS: metroNIDAZOLE 500 MG/100 ML PIGGYBACK 100 MG IV ×3 (11:11→18:50)
[2025-05-19] MEDS: LACTATED RINGERS 1,000 ML 125 ML IV ×2 (11:11→16:36)
--- NOTE | 2025-05-19 11:42 | PC.NURSE ---
Pt in room resting and given medications
[2025-05-19] MEDS: PIPERACILLIN/TAZO 4.5 GM in SODIUM CHLORIDE 0.9% 100 ML IV (12:50)
[2025-05-19] MEDS: HYDROCODONE/ACET 5/325 TABLET 1 TAB PO (16:57)
[2025-05-19] MEDS: SIMETHICONE 80 MG TABLET PO (20:21)
[2025-05-20] MEDS: LACTATED RINGERS 1,000 ML 125 ML IV ×2 (00:07→08:37)
[2025-05-20] MEDS: HYDROCODONE/ACET 5/325 TABLET 1 TAB PO ×3 (00:11→10:46)
[2025-05-20] MEDS: metroNIDAZOLE 500 MG/100 ML PIGGYBACK 100 MG IV ×2 (03:59→11:45)
[2025-05-20 04:00] VITALS: BP 96/59; PULSE 95; RESP 16; TEMP 37; O2SAT 95
[2025-05-20 06:50] LABS: Hematocrit 38.2 % (41-53); Hemoglobin 13.3 g/dL (13.5-17.5); Mean Corpuscular HGB Conc 34.9 % (30-36); Mean Corpuscular Hemoglobin 31.4 PG (26-34); Mean Corpuscular Volume 89.8 fL (80-100); Platelet Count 139 X10^3/uL (150-400)
[2025-05-20 07:07] LABS: Alanine Aminotransferase 26 IU/L (<50); Albumin 3.4 g/dL (3.5-5.0); Albumin Globulin Ratio 1.3 (1.0-2.8); Alkaline Phosphatase 38 U/L (38-126); Blood Urea Nitrogen 9 mg/dL (9-20); Calcium 8.7 mg/dL (8.4-10.2); Carbon Dioxide 28 mmol/L (22-32); Chloride 100 mmol/L (98-107); Estimated Glomerular Filt Rate > 60 mL/min (>60); Globulin 2.7 g/dL (1.7-4.1); Glucose 104 mg/dL (70-99); HEMOLYSIS 15 (0-50); Potassium 4.0 mmol/L (3.4-5.1); Sodium 136 mmol/L (137-145); Total Protein 6.1 g/dL (6.3-8.2)
[2025-05-20 08:00] VITALS: BP 102/70; PULSE 90; RESP 14; TEMP 36.7; O2SAT 94
[2025-05-20] MEDS: ACETAMINOPHEN 325 MG TABLET 650 MG PO (08:37)
[2025-05-20] MEDS: SIMETHICONE 80 MG TABLET PO (08:41)
--- NOTE | 2025-05-20 11:06 | PM.PN.IH.1 ---
Subjective Subjective Date Patient Seen: 05/20/25 Time Patient Seen: 10:00 Interval history: Patient is a 43-year-old white male admitted through the ER with diverticulitis. Patient states he is feeling better his urine is now clear he was extremely dehydrated when he came in. Patient states he has would like to possibly go home after he discusses with his . Patient's morning laboratory shows WBC of 9.2 hemoglobin is 13.3 hematocrit is 38.2 platelets a 139,000 sodium is 136 potassium 4.0 chloride 100 bicarb is 28 BUN of 9 creatinine 0.89 random blood sugar is 104 total bilirubin is 2.8 AST is 24 ALT is 26 alkaline phosphatase is 38. Vitals: Temperature is 98.6? pulse 95 respirations 16 BP is 96/59 SaO2 is 95%. Heart regular rate and rhythm without murmurs lungs are clear to auscultation no rales rhonchi or wheezes noted. Abdomen is soft with good active bowel sounds lower abdominal pain is noted minimal rebound is noted. Impression: Resolving abdominal pain with acute diverticulitis possible microperforation Normal WBC Plan: Discussed with patient the findings he would possibly like to go home today we will discuss with his . We will decrease IV increase diet. Discussed diverticular disease and complications and problems with patient including need for emergent surgery with perforation abscess fistulas bleeding bowel obstruction all questions were answered patient's satisfaction. Discussed dietary changes need to avoid seeds nuts popcorn stay on a high dietary fiber number may take MiraLax every day also discussed the need for adequate hydration with drinking water he lots of tea. Discussed need for emergent surgery with complications of diverticulitis and need for ostomy patient understands all questions were satisfaction we will evaluate later today if doing well possible discharge. Patient returned the ER if any problems or questions or complications. Exam Vital Signs (past 8 hours): - 05/20/25 04:00 05/20/25 08:00 Temperature 98.6 F 98.1 F Pulse Rate 95 H 90 Respiratory Rate 16 14 Blood Pressure 96/59 L 102/70 Pulse Oximetry 95 94 Oxygen Flow Rate 0 0 Oxygen Delivery Method Nasal Cannula Oxygen Flow Rate 0 Objective Labs 05/20/25 06:17 05/20/25 06:17 Labs: Laboratory Results - last 24 hr 05/20/25 06:17 WBC 9.2 RBC 4.25 L Hgb 13.3 L Hct 38.2 L MCV 89.8 MCH 31.4 MCHC 34.9 RDW 13.2 Plt Count 139 L Sodium 136 L Potassium 4.0 Chloride 100 Carbon Dioxide 28 BUN 9 Creatinine 0.89 Estimated GFR > 60 BUN/Creatinine Ratio 10.1 Glucose 104 H Calcium 8.7 Total Bilirubin 2.8 H AST 24 ALT 26 Alkaline Phosphatase 38 Total Protein 6.1 L Albumin 3.4 L Globulin 2.7 Albumin/Globulin Ratio 1.3 PFSH Medical History Diverticulosis Pancreatitis Fistula Injury of left lower arm Hypercholesteremia Social History household members: spouse Smoking Status: Never smoker alcohol intake: former Assessment & Plan Time-Based Coding :: [TOTAL MINUTES] spent with patient and on the chart (including review of chart, obtaining history, exam, reviewing outside data, placing orders, documenting exam and treatment plan, and counseling patient) on [DATE]. Quality VTE Deep Vein Thrombosis/Pulmonary Embolism Present on Admission: No IH PROFEE Logistics Engineering Manager Document charge(s): Yes
--- NOTE | 2025-05-20 11:58 | PM.DS.IH.1 ---
History of Present Illness History of Present Illness Date Patient Seen: 05/20/25 Time Patient Seen: 12:00 Date of Onset of Symptoms: 05/17/25 Chief complaint: Severe Stomach pain and cramps x2days, fever 100.4 Narrative: Patient is a 49-year-old white male presents to the emergency room with lower abdominal pain of 2 days' duration. Patient states he is having some dysuria. Denies any nausea vomiting denies any rectal bleeding patient had a chills and elevated temperature at home. Patient was worked up for diverticulitis as he has had multiple episodes history of chronic constipation problems perirectal abscesses with fistula and diverticular disease. Patient laboratory shows WBC of 10.9 hemoglobin is 15.4 hematocrit is 44.3 platelets a 169,000 sodium is 136 potassium is 4.7 chloride is 104 bicarb is 24 BUN of 13 creatinine 0.95 random blood sugar is 123 total bilirubin is 1.7 AST is 35 ALT is 29 alkaline phosphatase is forty lipase is [address] scan was visualized which shows absent gallbladder normal appendix severe diverticular disease to the right colon patient noted to have some moderate diverticulitis of the mid sigmoid colon radiology read a small microperforation but on viewing it appears to be a small gas bubble associated with a diverticulum and stool ball with inflammation slightly inflamed onto the bladder. No signs of fistula is noted. No signs of acute surgical abdomen are noted. I was asked to see the patient for surgical evaluation. Allergies to penicillin and Cipro Medications: Patient is on Augmentin and metronidazole and other home meds. See med list Past medical history: Corrective lenses, history of left arm fracture as a child, history of diverticulitis history of a perirectal abscess with subsequent fistula and resection. Patient denies any other heart lungs digestive musculoskeletal neurological seizure disorder psychiatric problems risks of Infectious diseases HIV or AIDS. Past surgical history: Laparoscopic cholecystectomy in October of 2024, wisdom tooth extraction, right biceps tendon rupture repair, left arm ORIF, colonoscopy in 2021 negative. Social history. Patient works at the [employer], history of tobacco abuse 2 years in high school denies any alcohol since 2006 but he had a history of alcohol abuse and is recovering from this, history of marijuana usage last use several weeks ago. Vitals: Temperature is 98.9? pulse 111 respirations 20 BP is 154/92 saturation O2 is 96%, patient is 5 ft 6 inches, 190 lb. Head is normocephalic eyes PERRLA EOMI is intact nares are clear septum is midline EACs and pinnae unremarkable oropharyngeal cavity is moderate repair slightly dry heart regular rate and rhythm without murmurs lungs are clear but diminished in the bases. Abdomen is soft with hypoactive bowel sounds patient has lower abdominal pain slight rebound. Musculoskeletal moderate muscle tone and strength are bilaterally no gross deficits elicited. Impression: Lower abdominal pain left lower quadrant x2 days with CT scan showing diverticulitis moderate with possible small microperforation. Absent gallbladder normal appendix severe diverticular disease to the right colon History of chronic constipation with diverticulitis, perirectal abscesses, history of perirectal fistula WBC is 10.9 Plan: Discussed with patient the findings discussed diverticular disease and chronic constipation and is complications. Patient will be admitted for pain control IV antibiotics and hydration as patient is extremely dehydrated. Discussed with patient the complications of diverticular disease and need for emergent surgery and possible colostomy he understands we will follow patient closely we will admit when bed is available to the floor. All questions answered to patient's satisfaction no need for emergent surgical intervention at this time. Discharge Providers Provider Date of admission: 05/19/25 10:15 Discharge Date: 05/20/25 Primary care physician: Ester Staples PA-C Discharge provider: Alexandru Mckeon DO Summary Hospital Course Discharge Diagnosis: Resolving acute diverticulitis Hospital Course: Patient was admitted through the emergency room by myself on 06/2025 patient had an episode of diverticulitis which started 05/17/2025. Patient was worked up in the emergency room had a normal WBCs CT scan showing a moderate diverticulitis with possible microperforation versus air in the diverticulum. Patient was extremely dehydrated he was admitted to the hospital for IV fluids IV antibiotics pain control. Patient was followed up the next day was noted to have a normal white blood counts feeling better passing flatus tolerating diet and he desires to go home. Patient was discussed the findings and the need to continue with the high dietary fiber tacks using MiraLax every day avoid seeds nuts popcorn constipated foods and meds discussed diverticulitis and its complications and need for emergent surgery such as abscesses bleeding perforation and fistulas all questions were answered the patient's satisfaction he desires to go home is here all questions were answered to her satisfaction patient may follow up if any worsening symptoms or problems in the emergency room where schedule follow-up with her family physician. Patient has not had a screening colonoscopy in 10 years needs to have a colonoscopy scheduled on an outpatient basis but after several months after this has calmed down. Patient will continue with his Augmentin and metronidazole we will phone in a prescription for hydrocodone for him for pain all questions were answered the patient's satisfaction and discharged on hospital day 1. Status at Discharge Functional status at discharge: independent ambulation Time Spent with Patient Time spent: Greater than 30 minutes Exam Vital Signs (past 8 hours): - 05/20/25 04:00 05/20/25 08:00 05/20/25 08:00 Temperature 98.6 F 98.1 F Pulse Rate 95 H 90 Respiratory Rate 16 14 Blood Pressure 96/59 L 102/70 Pulse Oximetry 95 94 Oxygen Delivery Method Room Air Oxygen Flow Rate 0 0 Oxygen Delivery Method Room Air Oxygen Flow Rate 0 Psych Judgment: judgment good Objective Labs 05/20/25 06:17 05/20/25 06:17 Labs: Laboratory Results - last 24 hr 05/20/25 06:17 WBC 9.2 RBC 4.25 L Hgb 13.3 L Hct 38.2 L MCV 89.8 MCH 31.4 MCHC 34.9 RDW 13.2 Plt Count 139 L Sodium 136 L Potassium 4.0 Chloride 100 Carbon Dioxide 28 BUN 9 Creatinine 0.89 Estimated GFR > 60 BUN/Creatinine Ratio 10.1 Glucose 104 H Calcium 8.7 Total Bilirubin 2.8 H AST 24 ALT 26 Alkaline Phosphatase 38 Total Protein 6.1 L Albumin 3.4 L Globulin 2.7 Albumin/Globulin Ratio 1.3 PFSH Medical History Diverticulosis Pancreatitis Fistula Injury of left lower arm Hypercholesteremia Social History household members: spouse Smoking Status: Never smoker alcohol intake: former Discharge Plan Discharge Plan Patient Disposition: Home Provider Discharge Comment: Discharge improve diverticulitis Discharge orders & Medications Prescriptions: New amoxicillin-pot clavulanate [Augmentin] 500-125 mg tablet 1 tab PO BID Qty: 30 1RF metronidazole 500 mg tablet 500 mg PO Q8H Qty: 60 1RF Continued ezetimibe 10 mg tablet PO DAILY hydrocodone-acetaminophen 5-325 mg tablet 1 tab PO Q4H PRN (Reason: pain) Qty: 18 0RF meloxicam 15 mg tablet 15 mg PO DAILY Qty: 30 0RF tizanidine 2 mg tablet 2 mg PO Q8H PRN (Reason: muscle spasticity or pain) Qty: 90 0RF ibuprofen 800 mg tablet 800 mg PO Q8H PRN (Reason: pain) Qty: 30 0RF metronidazole 500 mg tablet 500 mg PO Q8H Qty: 42 0RF amoxicillin-pot clavulanate 875-125 mg tablet 1 tab PO Q12H Qty: 28 0RF Follow up/Referrals: Ester Staples PA-C [Primary Care Provider, Medical] Diet/Activity/Treatments Diet: Diet as Tolerated Diet comment: Avoid seeds nuts popcorn constipating foods and meds patient needs take Brian Skin/Wound/Dressing Care Report to your healthcare provider any signs of infection, such as:: chills, fever, night sweats and increased pain Visit Report/Discharge Packet Instructions: DI for Prescription Opioid Use Stand Alone Forms: Patient Portal/API Discharge Data Primary Care Provider: Ester Staples Quality VTE Deep Vein Thrombosis/Pulmonary Embolism Present on Admission: No IH PROFEE Charge Codes Discharge inpatient/observation: [id number]
--- NOTE | 2025-05-20 12:47 | CM.DANOTE ---
Patient is a 49 yo male who was admitted INPT Status on 05/19/25 for Abd Pain. Pt has REG [employer] for insurance and his PCP is Ester Staples at [facility]. EMR was reviewed. Per MD, pt admitted with severe diverticular disease with hx of ETOH, past smoking, and THC and to have IV fluids and Abx. Pt with improved pain and flatus and per Surgeon might be stable for discharge home today. 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 Pt confirms he is hopeful to d/c home today and still with some abdominal discomfort and if he is able to d/c home today will not need Medical Excuse for Work at this time. Pt states spouse should be bedside soon and could provide transport home at d/c. Pt does not anticipate any further needs at this time. Per RN, pt has been ambulatory and independent in room and no concerns noted. Plan: SW to follow for likely pt d/c home via spouse POV later today and outpt f/u. [place] Discharge Planning/Care Management CM Discharge Assessment Start: 05/19/25 14:22 Freq: Status: Active Protocol: Document 05/20/25 12:36 BF (Rec: 05/20/25 12:46 BF [id number]) Discharge Planning Assessment Assigned Discharge [place] DPOA/Assigned informally spouse Michelle Designee Name Contact Information [phone] Advance Directives? No Advance Directives No on File History Provided By Patient,Medical Record Has Patient been No admitted in last 30 days? Prior Living House Arrangements Household Members spouse Type of Drives own vehicle transporation used prior to admit Independent with ADL Yes 's Is patient alert and Yes oriented? Caregiver for No Another Barriers to No Discharge Discharge Plan Home Transportation Spouse plans to transport at d/c. Arrangement Referrals Initiated None needed Whiteboard Updated Yes in Patient Room with name and ext. # of Credit And Loan Collections Supervisor Review Status In Process Please Provide Date 05/20/25 Initial DC Assessment Was Performed Next Review Type Continued Stay Review Document 05/20/25 12:46 BF (Rec: 05/20/25 12:47 BF [id number]) Discharge Planning Assessment Assigned Discharge Christine, OWNER PROFESSIONAL ENGINEER [employer] DPOA/Assigned informally spouse Michelle Designee Name Contact Information [phone] Advance Directives? No Advance Directives No on File History Provided By Patient,Medical Record Has Patient been No admitted in last 30 days? Prior Living House Arrangements Household Members spouse Type of Drives own vehicle transporation used prior to admit Independent with ADL Yes 's Is patient alert and Yes oriented? Caregiver for No Another Barriers to No Discharge Discharge Plan Home Transportation Spouse plans to transport at d/c. Arrangement Referrals Initiated None needed Whiteboard Updated Yes in Patient Room with name and ext. # of Credit And Loan Collections Supervisor Review Status In Process Please Provide Date 05/20/25 Initial DC Assessment Was Performed Next Review Type Continued Stay Review
--- NOTE | 2025-05-20 13:00 | PC.NURSE ---
Discharge: Pt agreeable to discharge plan. IV discontinued. Education provided on medications, foods to avoid, and follow up appt. Pt verbalized understanding. Pt wheeled via w/c to private vehicle at approximately 1258.
== END 2025-05-20 12:57 | disposition home or self-care (01) | DRG 392 ==
LOC: ED 07:16 → AC 10:16
PROVIDERS: Admitting Provider Surgery; Emergency Provider Emergency Medicine; PCP Physician Assistant; Referring Provider Emergency Medicine; Visit Provider Surgery
DX: K57.20 Diverticulitis of large intestine with perforation and abscess without bleeding (principal); E86.0 Dehydration; K59.09 Other constipation; E78.00 Pure hypercholesterolemia, unspecified; Z88.0 Allergy status to penicillin; Z87.891 Personal history of nicotine dependence
CPT/HCPCS: 36415; 74177; 80053; 81003; 83605; 83690; 85025; 85027; 87040; 96361; 96365; 96367; 96375; 96376; 99284; 99285; J0696; J1171; J2405; J2543; Q9967

== ENCOUNTER 2025-08-18 13:07 | Emergency (ER) | payer OTHER, SELFPAY ==
[2025-05-19 14:22] VITALS: BMI 30.2
[2025-08-18] VITALS (64 sets, daily range): BP systolic 115–147; BP diastolic 57–80; PULSE 79–97; RESP 12–31; TEMP 36.6; O2SAT 94–100
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
--- NOTE | 2025-08-18 13:23 | EKG_ITS ---
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
--- NOTE | 2025-08-18 14:57 | EKG_ITS ---
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
[2025-08-18] MEDS: ESMOLOL 2.5 GM/250 ML IV.SOLN IV (15:05)
[2025-08-18 15:06] LABS: Add Manual Diff / Slide Review NO; Hematocrit 41.9 % (41-53); Hemoglobin 14.3 g/dL (13.5-17.5); Lymphocytes Absolute Auto 3900 /uL (1100-4500); Mean Corpuscular HGB Conc 34.1 % (30-36); Mean Corpuscular Hemoglobin 31.0 PG (26-34); Mean Corpuscular Volume 90.7 fL (80-100); Platelet Count 231 X10^3/uL (150-400)
[2025-08-18 15:10] LABS: Lactate (Lactic Acid) 2.7 mmol/L (0.7-2.1)
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
[2025-08-18 15:11] LABS: Alanine Aminotransferase 88 IU/L (<50); Albumin 4.4 g/dL (3.5-5.0); Albumin Globulin Ratio 1.6 (1.0-2.8); Alkaline Phosphatase 44 U/L (38-126); Blood Urea Nitrogen 17 mg/dL (9-20); Calcium 9.2 mg/dL (8.4-10.2); Carbon Dioxide 25 mmol/L (22-32); Chloride 103 mmol/L (98-107); Estimated Glomerular Filt Rate > 60 mL/min (>60); Ethanol (ETOH) < 10 mg/dL (<10); Globulin 2.8 g/dL (1.7-4.1); Glucose 122 mg/dL (70-99); Lipase 140 U/L (23-300); Sodium 138 mmol/L (137-145); Total Protein 7.2 g/dL (6.3-8.2)
[2025-08-18 15:12] LABS: HEMOLYSIS 63 (0-50); Potassium 4.3 mmol/L (3.4-5.1)
[2025-08-18] MEDS: TET,DIPH,PERTUSS(ACELL),VAC/PF 0.5 ML SYRINGE IM (15:16)
[2025-08-18 15:17] LABS: INR 1.0 (0.9-1.3); Prothrombin Time 11.4 SECONDS (9.4-12.5)
[2025-08-18 15:20] LABS: PTT Partial Thromboplastin Tim 27 SECONDS (25.1-36.5)
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
[2025-08-18] MEDS: ONDANSETRON 4 MG/2 ML INJ IV (15:46)
[2025-08-18 15:54] LABS: Appearance Urine UA CLEAR; Bilirubin Urine UA NEGATIVE (NEGATIVE); Color Urine UA YELLOW; Glucose Urine UA NEGATIVE (Negative); Ketones Urine UA NEGATIVE (NEGATIVE); Leukocyte Esterase Urine UA NEGATIVE (NEGATIVE); Nitrite Urine UA NEGATIVE (Negative); Occult Blood Urine UA TRACE-INTACT (Negative); Protein Urine UA 1+ (Negative); Specific Gravity Urine UA 1.010 (1.000-1.035); Urobilinogen Urine UA 0.2 E.U./dL (0.2); pH Urine UA 6.5 (4.5-8.0)
[2025-08-18 16:00] LABS: Culture Indicated Urine Cult Not Indicated
[2025-08-18 16:01] LABS: Ur Specific Gravity Normal (Normal)
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
[2025-08-18 16:02] LABS: UR Morphine/Opiate cutoff 300 Negative (Negative); Urine MDMA Negative (Negative); Urine Methamphetamines Negative (Negative); Urine Tetrahydrocannabinol Positive (Negative); Urine Tricyclic Antidepressant Negative (Negative)
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
[2025-08-18 16:35] LABS: Reflexed Lactate in 2 Hours Y
== END 2025-08-18 16:05 | disposition short-term general hospital (02) ==
PROVIDERS: Emergency Provider Family Medicine; PCP Physician Assistant
DX: S42.211A Unspecified displaced fracture of surgical neck of right humerus, initial encounter for closed fracture (principal); S35.41 Laceration of renal blood vessel; I71.00 Dissection of unspecified site of aorta; R41.82 Altered mental status, unspecified; S27.1XXA Traumatic hemothorax, initial encounter; V86.56XA Driver of dirt bike or motor/cross bike injured in nontraffic accident, initial encounter; Z23 Encounter for immunization
CPT/HCPCS: 70450; 71045; 71275; 72125; 73060; 73552; 74177; 80053; 80305; 80320; 81001; 83605; 83690; 85025; 85610; 85730; 86850; 86900; 86901; 90471; 93005; 96374; 96375; 96376; 99285; 99291; 99292; 90715; G0390; J1171; J2405; Q9967

== ENCOUNTER 2025-10-09 08:02 | Emergency (ER) | payer OTHER, SELFPAY ==
[2025-09-27 08:59] VITALS: BMI 30.2
[2025-10-09 08:19] VITALS: BP 114/80; PULSE 103; RESP 17; TEMP 36.1; O2SAT 98; BMI 29.0
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
--- NOTE | 2025-10-09 08:38 | DI.RAD.S_ITS ---
PROCEDURE: XR SHOULDER RT MIN 2V INDICATIONS: fall pain prior surgery TECHNIQUE: 3 views of the shoulder were acquired. COMPARISON: None. FINDINGS: Bones: Changes of prior internal fixation of a comminuted right humeral head subacute fracture. No acute fracture or periprosthetic fracture. No suspicious bony lesions. Visualized ribs appear intact. Soft tissues: No suspicious soft tissue calcifications. Changes of endovascular stent graft of the transverse to proximal descending thoracic aorta. Cholecystectomy clips in the right upper quadrant. IMPRESSION: No acute bony abnormality. Dictated by: Adan Fink M.D. on 10/09/2025 at 9:14 Approved by: Adan Fink M.D. on 10/09/2025 at 9:15
--- NOTE | 2025-10-09 10:28 | PC.NURSE ---
Patient had shoulder surgery on the right shoulder. The patient fell yesterday and caught himself and hurt his surgical shoulder. He feels pain in his upper shoulder and limited range [email or web address] motion.
[2025-10-09 10:33] VITALS: BP 179/94; PULSE 96; RESP 14; O2SAT 97
== END 2025-10-09 10:42 | disposition home or self-care (01) ==
PROVIDERS: Emergency Provider Emergency Medicine; PCP Family Medicine
DX: S43.401A Unspecified sprain of right shoulder joint, initial encounter (principal); Z87.891 Personal history of nicotine dependence; W19.XXXA Unspecified fall, initial encounter
CPT/HCPCS: 73030; 99281; 99283